=== PATIENT | female | born 2000 | race Caucasian/White ===

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

== ENCOUNTER 2022-03-09 02:25 | Inpatient (IN) | payer MEDICAID, SELFPAY ==
[2022-03-09] VITALS (59 sets, daily range): BP systolic 94–141; BP diastolic 51–77; PULSE 69–127; RESP 14–16; TEMP 36.3–37.2; O2SAT 97–100; BMI 27.3
[2022-03-09] MEDS: Lactated Ringers 1,000 ML 200 ML IV (02:55)
[2022-03-09] MEDS: LACTATED RINGERS 500 ML 999 ML IV ×3 (02:56→09:21)
[2022-03-09 03:19] LABS: Absolute Lymphocyte Count 2.45 X10^3/uL (0.83-4.51); Absolute Neutrophil Count 10.8 X10^3/uL (2.0-7.7); Basophil# 0.07 X10^3/uL; Basophil% 0.5 % (0-1); Eosinophil# 0.13 X10^3/uL; Eosinophils% 0.9 % (0-5); Hematocrit 33.1 % (37-47); Hemoglobin 11.1 g/dL (12.0-15.0); Lymphocyte # 2.45 X10^3/ul (0.83-4.51); Lymphocyte % 16.9 % (19-41); Mean Corp Hgb Conc 33.5 g/dL (32-36); Mean Corpuscular Hgb 27.9 pg (27.0-32.0); Mean Corpuscular Volume 83.2 fL (81-99); Mean Platelet Vol. 11.1 fl (6.2-12.0); Monocyte# 0.91 X10^3/uL; Monocyte% 6.3 % (0-10); NRBC Flagged by Analyzer 0 % (0-5); Neutrophil # 10.75 X10^3/uL (2.7-7.7); Neutrophil % 74.2 % (47-70); Platelet Count 231 K/mm3 (150-450); RBC Distribution Width CV 12.9 % (11.6-14.6); RBC Distribution Width SD 38.9 fl (35.1-43.9); Red Blood Count 3.98 M/mm3 (4.2-5.4); White Blood Count 14.5 K/mm3 (4.4-11.0)
[2022-03-09 04:04] LABS: HIV - WCH Non-Reactive (Nonreactive)
[2022-03-09] MEDS: fentaNYL-bupivacaine (epidural) 100 ML BAG EPIDURAL ×2 (04:06→09:19)
[2022-03-09] MEDS: Ondansetron 4 MG/2 ML Vial IV (08:24)
[2022-03-09] MEDS: Oxytocin 30 units/NS 500 ml 30 UNITS/500 ML IV.SOLN 334 UNITS IV (11:23)
--- NOTE | 2022-03-09 11:30 | PLAC_PTH ---
PATIENT: ANDREW ROBERTS LOC: WP U#:[id number] AGE/SX: 21/F ROOM: WP012 RE03/09/[address]: Dr. Marybeth Srinivasan MD : 2000 BED: 1 DIS: 03/11/2022 SPEC #: [id number] RECD: 03/09/22 14:47 STATUS: FRAN REQ #: [id number] EDY: 03/09/22 11:[address]: Marybeth Srinivasan DEPT: SURGICAL PATHOLOGY RECD BY: Laine Terry ENTERED: 03/12/22 08:15 SP TYPE: PLACENTA OTHR DR: Dr. Fidel Lloyd MD Tissues: Placenta, NOS Procedures: Surgery Specimen Level V HEADER OPERATION: Vaginal delivery PRE-OP DIAGNOSIS: Placental abruption, decelerations TISSUE SUBMITTED: Placenta MICROSCOPIC DIAGNOSIS Spence placenta (461 gm): Umbilical cord ? trivascular with no inflammation. Placental membranes ? acute deciduitis, mild acute chorioamnionitis and mild acute amnionitis. Placental disc ? Tripp-Uriah change, increased intraparenchymal microcalcifications and mild chronic decidual inflammation. AM:buzz 03/13/2022 MICROSCOPIC DESCRIPTION Slides are reviewed. GROSS DESCRIPTION SPECIMEN: PLACENTA / CLINICAL INFORMATION: A. Weight: 3 kg B. Gestational Age: 39 weeks C. Sex: Male PLACENTAL WEIGHT (POST FIXATION): 461 gm PLACENTAL DIMENSIONS: 15 x 15 x 3.5 cm PLACENTAL SHAPE: Usual ovoid PLACENTAL WEIGHT FOR GESTATIONAL AGE: Within 10-99th percentile MEMBRANES - Present A. Insertion: Marginal B. Site of rupture from edge: 9 cm from edge of placental disc C. Color of membrane: Moses, mucoidy D. Abnormalities: None UMBILICAL CORD - Present A. Color: Moses-berry B. Insertion: Paracentral C. Length: 17 cm D. Diameter: 1.2 cm E. Number of vessels: Three F. Abnormalities: None Also present in the container is a detached segment of umbilical cord measuring 22 cm in length and 1 cm in diameter. PLACENTAL DISC - Present A. Color of surface: Moses-berry B. surface abnormalities: None C. Maternal cotyledons: Intact with minimal tears D. Attached retro placental clot: No clot E. Cut surface: Dark red and spongy F. Lesions: Sections reveal a moses, indurated area measuring 0.7 cm in greatest dimension. Plaque is noted on the surface measuring 0.5 cm in greatest dimension. G. Separate clot: Multiple fragments of blood clots are noted weighing 58 gm and measuring in aggregate 9 x 6 x 4 cm. SECTIONS SUBMITTED: 1. Membrane roll 2. Cord, maternal end 3. Detached segment of umbilical cord 4. Placental disc, and maternal surfaces, moses, indurated area and fibrinous plaque on the surface 5. Placental disc, and maternal surfaces 6. Placental disc, and maternal surfaces SJ:buzz 03/12/2022 TC:2 CPT: 69513
--- NOTE | 2022-03-09 11:33 | PCM.HP.OB ---
HPI - General General Date of Admission: 03/09/22 Date of Service: 03/09/22 Chief Complaint: labor HPI Narrative ANDREW ROBERTS, is a 20-year-old 2 para 0-0-1-0 who presented at 39-4/7 gestational weeks complaining of contractions. She arrived to labor and delivery and was evaluated and deemed to be in labor and was admitted. was complicated to date by history of mood disorder, history of nicotine use disorder She has a history of 1 previous first trimester miscarriage and had a D&C for this in 2020. [facility] Medical History (Updated 03/09/22 @ 11:[address] Marybeth Srinivasan MD) Anxiety Depression Tonsil and adenoid disease, chronic Home Medications prenat.vits,michael,[id number] 1 tab PO DAILY 03/09/22 [History Last Taken 03/08/22] Allergy/AdvReac Type Severity Reaction Status Date / Time No Known Allergies Allergy Verified 02/08/21 12:59 Surgical History H/O hernia repair History of placement of ear tubes Social History household members: family Smoking Status: Former smoker alcohol intake: never substance use type: does not use History Elective abortions Hx Para 0 Spontaneous abortions Hx # Term Pregnancies Ectopic pregnancies Hx # Pregnancies Multiple births # of living children ROS Constitutional Constitutional: Denies fatigue, fever(s) or malaise Eyes Eyes: Denies change in vision ENT HEENT: Denies dizziness or headache(s) Cardiovascular Cardiovascular: Denies chest pain, dyspnea or lightheadedness Respiratory/Chest Respiratory/Chest: Denies cough or dyspnea Gastrointestinal Gastrointestinal: Denies change in bowel habits Genitourinary Genitourinary: Denies burning urination or genital lesions Integumentary Integumentary: Denies rash Neurologic Neurologic: Denies confusion, dizziness, headache(s), numbness or weakness Vital Signs Vital Signs Vital Signs: 03/09/22 02:13 03/09/22 02:13 03/09/22 02:13 Temperature Temperature Source Temporal Pulse Rate 98 Blood Pressure 117/77 BP Systolic 117 BP Diastolic 77 Pulse Ox 03/09/22 02:13 03/09/22 03:28 03/09/22 03:28 Temperature 97.4 F L Temperature Source Pulse Rate 127 H Blood Pressure BP Systolic BP Diastolic Pulse Ox 100 03/09/22 03:33 03/09/22 03:33 03/09/22 03:38 Temperature Temperature Source Pulse Rate 96 84 Blood Pressure BP Systolic BP Diastolic Pulse Ox 99 03/09/22 03:38 03/09/22 03:39 03/09/22 03:39 Temperature Temperature Source Pulse Rate 85 Blood Pressure 133/67 H BP Systolic 133 BP Diastolic 67 Pulse Ox 100 03/09/22 03:43 03/09/22 03:43 03/09/22 03:43 Temperature Temperature Source Pulse Rate 83 84 Blood Pressure 125/61 H BP Systolic 125 BP Diastolic 61 Pulse Ox 03/09/22 03:43 03/09/22 03:49 03/09/22 03:49 Temperature Temperature Source Pulse Rate 83 Blood Pressure 120/57 L BP Systolic 120 BP Diastolic 57 Pulse Ox 99 03/09/22 03:51 03/09/22 03:51 03/09/22 03:54 Temperature Temperature Source Pulse Rate 79 Blood Pressure 115/64 BP Systolic 115 BP Diastolic 64 Pulse Ox 99 03/09/22 03:54 03/09/22 03:56 03/09/22 03:56 Temperature Temperature Source Pulse Rate 75 80 Blood Pressure BP Systolic BP Diastolic Pulse Ox 98 03/09/22 03:58 03/09/22 03:58 03/09/22 04:04 Temperature Temperature Source Pulse Rate 69 Blood Pressure 113/60 117/66 BP Systolic 113 117 BP Diastolic 60 66 Pulse Ox 03/09/22 04:04 03/09/22 04:04 03/09/22 04:04 Temperature Temperature Source Pulse Rate 86 88 Blood Pressure BP Systolic BP Diastolic Pulse Ox 99 03/09/22 04:08 03/09/22 04:08 03/09/22 04:09 Temperature Temperature Source Pulse Rate 85 81 Blood Pressure 114/70 BP Systolic 114 BP Diastolic 70 Pulse Ox 03/09/22 04:09 03/09/22 04:13 03/09/22 04:13 Temperature Temperature Source Pulse Rate 82 Blood Pressure 109/59 L BP Systolic 109 BP Diastolic 59 Pulse Ox 98 03/09/22 04:14 03/09/22 04:14 03/09/22 04:19 Temperature Temperature Source Pulse Rate 86 92 Blood Pressure BP Systolic BP Diastolic Pulse Ox 99 03/09/22 04:19 03/09/22 04:24 03/09/22 04:24 Temperature Temperature Source Pulse Rate 89 Blood Pressure BP Systolic BP Diastolic Pulse Ox 99 99 03/09/22 04:29 03/09/22 04:29 03/09/22 04:34 Temperature Temperature Source Pulse Rate 79 81 Blood Pressure BP Systolic BP Diastolic Pulse Ox 98 03/09/22 04:34 03/09/22 04:39 03/09/22 04:39 Temperature Temperature Source Pulse Rate 87 Blood Pressure BP Systolic BP Diastolic Pulse Ox 97 98 03/09/22 04:45 03/09/22 04:45 03/09/22 05:44 Temperature Temperature Source Temporal Pulse Rate 87 Blood Pressure 106/60 BP Systolic 106 BP Diastolic 60 Pulse Ox 03/09/22 05:44 03/09/22 05:44 03/09/22 05:44 Temperature 97.4 F L Temperature Source Pulse Rate 74 Blood Pressure 94/52 L BP Systolic 94 BP Diastolic 52 Pulse Ox 03/09/22 06:42 03/09/22 06:42 03/09/22 06:42 Temperature Temperature Source Temporal Pulse Rate 76 Blood Pressure 104/58 L BP Systolic 104 BP Diastolic 58 Pulse Ox 03/09/22 06:42 03/09/22 07:26 03/09/22 07:26 Temperature 97.8 F Temperature Source Pulse Rate 84 Blood Pressure 120/75 BP Systolic 120 BP Diastolic 75 Pulse Ox 03/09/22 07:27 03/09/22 07:27 03/09/22 07:26 Temperature Temperature Source Temporal Pulse Rate 94 Blood Pressure BP Systolic BP Diastolic Pulse Ox 98 03/09/22 07:26 03/09/22 07:26 03/09/22 07:26 Temperature Temperature Source Pulse Rate 84 Blood Pressure 120/75 BP Systolic 120 BP Diastolic 75 Pulse Ox 99 03/09/22 07:26 03/09/22 08:16 03/09/22 08:16 Temperature 98.1 F Temperature Source Pulse Rate 79 Blood Pressure 131/70 H BP Systolic 131 BP Diastolic 70 Pulse Ox 03/09/22 08:36 03/09/22 08:36 03/09/22 08:37 Temperature Temperature Source Pulse Rate 69 71 Blood Pressure 114/58 L BP Systolic 114 BP Diastolic 58 Pulse Ox 03/09/22 08:37 03/09/22 08:42 03/09/22 08:42 Temperature Temperature Source Pulse Rate 70 Blood Pressure BP Systolic BP Diastolic Pulse Ox 100 100 03/09/22 08:37 03/09/22 08:37 03/09/22 08:37 Temperature Temperature Source Temporal Pulse Rate 73 Blood Pressure 114/58 L BP Systolic 114 BP Diastolic 58 Pulse Ox 03/09/22 08:37 03/09/22 08:37 03/09/22 08:47 Temperature 98.7 F Temperature Source Pulse Rate 75 Blood Pressure BP Systolic BP Diastolic Pulse Ox 100 03/09/22 08:47 03/09/22 08:52 03/09/22 08:52 Temperature Temperature Source Pulse Rate 82 Blood Pressure BP Systolic BP Diastolic Pulse Ox 100 100 03/09/22 09:16 03/09/22 09:16 03/09/22 10:24 Temperature Temperature Source Pulse Rate 83 Blood Pressure 114/70 116/63 BP Systolic 114 116 BP Diastolic 70 63 Pulse Ox 03/09/22 10:24 Temperature Temperature Source Pulse Rate 69 Blood Pressure BP Systolic BP Diastolic Pulse Ox Weight Weight: 70.125 kg Body Mass Index (BMI) 27.3 Physical Exam Const alert and no apparent distress General Appearance: cooperative HEENT normocephalic Resp normal respiratory effort Cardio regular rate GI soft to palpation GI Narrative: gravid, nontender, appropriate for gestational age Extremity no calf tenderness General Extremity: edema Skin no wounds Rashes: No rashes noted Psych activity/motor behavior normal Labs Labs Labs: Blood Type O POSITIVE Antibody Screen NEGATIVE Hct 33.1 % (37-47) L Hgb 11.1 g/dL (12.0-15.0) L HIV 1&2 Antibody Non-Reactive (Nonreactive) Assessment & Plan (1) 39 weeks gestation of : PLAN: Nulliparous patient at 39 weeks gestation presents complaining of labor. She was admitted for labor. Estimated weight is less than 4500 g clinically and pelvis clinically adequate to expect vaginal delivery. May have routine pain control measures as needed and as desired (2) Spontaneous onset of labor:
--- NOTE | 2022-03-09 11:37 | EX.PCM.OBRPT ---
Maternal Data Information Final JOHAN: 03/13/22 Gestational age: 39 4/7 Vaginal Delivery Maternal Presentation Maternal Presentation: Active Labor Operative Information Date of Procedure: 03/09/22 Pre-Operative Diagnosis: Prolonged decelerations, suspected placental abruption Post-Operative Diagnosis: Same Surgery / Procedure Performed: Vacuum Assisted Vaginal Delivery Type of Anesthesia: Epidural Special Medications: none Drain: Irving to straight drain Estimated Blood Loss: 500 Time of Delivery: 11:20 Findings Description of Procedure: I was called to labor and delivery and the patient was complete and pushing. She was labia approximately 3 cm in the skull was on the pelvic floor. Position was ANANT. Patient had had repetitive late and variable decelerations, times with minimal variability. She also had prolonged decelerations. When I arrived the patient pushed and was unable to deliver the head. She had another prolonged deceleration. There is also moderate amount of clots that were starting to extrude from the vagina and this was suspicious for placental abruption. Nursing informed me that this had just recently started within the last few minutes. I discussed with the patient and her support person option of trial of vacuum-assisted vaginal delivery. They desire to proceed. The vacuum was placed on the flexion point and the pressure was created to 550 mmHg. I pulled with 1 pull 1 contraction and 1 pop-off. On the next contraction the head was . The vacuum was not reapplied. A vigorous male was delivered EDUARDO over a second-degree perineal laceration. A loose nuchal cord ?1 was easily reduced. The remainder the was delivered with maternal pushing and gentle traction only in less than 15 seconds. The Pitocin infusion was initiated for active management of the third stage. The cord was clamped and cut in less than 1 minute because cord pulsation had ceased. The infant was attended to by the waiting nursing staff. Cord gases and cord blood were collected. The placenta delivered itself spontaneously with several large clots. 1 pass of the uterine fundus was made to make sure all membranes and placental pieces were removed. The cervix and vagina were intact. The second-degree perineal laceration was repaired with 2-0 Vicryl suture in a running standard fashion. Sponge and needle counts were correct. A vaginal sweep was completed by me. Presentation: EDUARDO Amniotic Membrane Rupture Type: Spontaneous Amniotic Fluid Description: Clear Placental Delivery Description: Spontaneous Placenta Disposition: Sent to Pathology Specimen(s) Removed: Placenta Cord Vessel Description: 3 Vessels Cord Entanglement: Around neck x 1, loose Nuchal Cord Compression: Without compression Cord Gases: ABG and VBG A Gender: Male ([facility]) (1 minute): 8 (5 minute): 9 Delayed Cord Clamping: No Post Vaginal Delivery Medications Given After Delivery: IV Pitocin Episiotomy Description: None Laceration: 2nd degree Complication Complications: None
[2022-03-09] MEDS: 0.9% Saline Lock 10 ML Syringe IV (15:40)
[2022-03-09] MEDS: Acetaminophen 500 MG Tablet 1000 MG PO ×2 (16:04→23:17)
[2022-03-09] MEDS: Ibuprofen 600 MG Tablet PO (18:41)
[2022-03-09] MEDS: Benzocaine/Lanolin/Aloe Vera 1 SPRAY EACH TOPICAL (20:09)
[2022-03-09] MEDS: oxyCODONE 5 MG Tablet PO (20:55)
[2022-03-10] VITALS (11 sets, daily range): BP systolic 93–117; BP diastolic 53–70; PULSE 70–77; RESP 14–16; TEMP 36.3–36.6; O2SAT 97–98
[2022-03-10 04:59] LABS: Hematocrit 25.2 % (37-47); Hemoglobin 8.3 g/dL (12.0-15.0); Mean Corp Hgb Conc 32.9 g/dL (32-36); Mean Corpuscular Volume 85.1 fL (81-99); Mean Platelet Vol. 10.6 fl (6.2-12.0); Platelet Count 197 K/mm3 (150-450); RBC Distribution Width CV 13.1 % (11.6-14.6); RBC Distribution Width SD 40.1 fl (35.1-43.9); Red Blood Count 2.96 M/mm3 (4.2-5.4); White Blood Count 11.8 K/mm3 (4.4-11.0)
[2022-03-10] MEDS: Ibuprofen 600 MG Tablet PO ×2 (07:49→18:39)
--- NOTE | 2022-03-10 09:04 | PCM.PN.OB ---
Subjective Subjective Patient complaining of perineal pain. Tolerating regular diet. Average lochia. Objective Data Objective Data Vital Signs: Vital Signs Temp Pulse Resp BP Pulse Ox O2 Del Method 97.8 F 77 15 109/70 98 Room Air 03/10/22 08:00 03/10/22 08:00 03/10/22 08:00 03/10/22 08:00 03/10/22 08:00 03/10/22 08:00 Oxygen Delivery Method Room Air Weight: 70.125 kg Body Mass Index (BMI) 27.3 Intake & Output: Intake and Output for Last 24 Hours 03/08/22 03/09/22 03/10/22 23:59 23:59 23:59 Intake Total 2243.33 / 2243.33 Output Total 2350 / 2350 400 / 400 Balance -106.67 / -106.67 -400 / -400 Lab / Micro Data Result Diagrams: 03/10/22 04:45 Labs: Laboratory Results - last 24 hr 03/10/22 04:45: WBC 11.8 H, RBC 2.96 L, Hgb 8.3 L, Hct 25.2 L, MCV 85.1, MCH 28.0, MCHC 32.9, RDW Std Deviation 40.1, RDW Coeff of Marcial 13.1, Plt Count 197, MPV 10.6 Micro: Microbiology 03/09/22 02:52 Nasal Secretion SARS-CoV-2 Antigen (Rapid) - Final Physical Exam Narrative Perineum and vulva with some edema but it soft. No evidence of vulvar or vaginal hematoma. Sutures are intact. Const alert and no apparent distress Narrative: Fundus firm, below umbilicus. Assessment & Plan (1) (spontaneous vaginal delivery): PLAN: Plan Outlet vacuum-assisted vaginal delivery. Status post placental abruption. Acute blood loss anemia consistent with blood loss during delivery. Recheck CBC later today. Reassured vulvar pain is common, and there is no evidence of infection or hematoma.
--- NOTE | 2022-03-10 11:01 | CASEMGMT ---
Social Work Assessment Labor and Delivery Unit Date/Time of referral: 03/09/22 12:24pm Referred by: Marybeth Srinivasan Date/Time of intervention: 03/10/22, 10:30am Reason for referral: anxiety/depression/social History obtained from: [facility] Household composition: MOB, MOB's father, and baby Jose L Patient's parent/guardian status: MOB is of the baby Medical History: MOB: history of anxiety, depression, miscarriage Baby: Born 03/09/22, 11:20am, Apgars 8 and 9 at one and five minutes, 3705 g at . Ambulatory Technologist: Dr. Manriquez. 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 MOB's parents help her financially as needed Childcare/Caregivers: MOB's mother will help w/childcare when MOB returns to work Transportation: MOB does not have a car, her mom provides transportation for her Infant supplies: They have all needed supplies including crib, bassinet, car seat, diapers, wipes, bottles, clothing. MOB plans to breast feed. Programs/Agencies Involved: [facility] Children Services/Legal Issues: None Behavioral Health Issues: Mental Health History: MOB confirms history of depression and anxiety. She is not on medication. She has been in the past, states it did not help. MOB has been in counseling in the past, states it was a little helpful. MOB denies any history of substance use. She states was vaping but stopped. No tox screens on MOB completed while pt here. Meconium pending for baby. SW spoke w/MOB about how she has been feeling, she states is feeling fine, denies any symptoms of depression or anxiety at present. SW asked about any thoughts of wanting to harm herself, of suicide, MOB denies. Family/Social Stressors: MOB identifies no stressors. Support Systems: MOB's mother, father, boyfriend Marcin. He is not the father of the baby. They have been together for 7 months. She also identifies her grandma and siblings as supportive. SHe does not know if the father of the baby will be supportive, he has not been involved except in the last month. Depressions and Anxiety/Mental Health Resources/Shaken Baby/Safe Sleeping/Resources/Help Me Grow: SW gave MOB information on all of these topics and reviewed the information. SW reviewed in particular information on depression, reviewed signs of it. SW encouraged MOB to speak w/OB or her regular doctor should she have symptoms. SW also reviewed with MOB the information for the crisis hotline if needed. MOB agreeable to Help Me Grow referral. Referral made. Assessment: SW spoke w/MOB initially. MOB has flat affect, though when speaking w/her she does become more interactive. MOB answers questions appropriately but short in answers. SW inquired about situation as boyfriend is not the father of the baby. As per RN, father of the baby did come to visit with his girlfriend. SW inquired about this, MOB states we kicked him out. SW inquired if he will be involved, MOB states she does not know. SW asked if this is causing any concern or worry for her, she states no. SW did ask pt's mother and boyfriend to come back in room after speaking w/MOB initially alone. SW did review signs and symptoms of with them as well, so that they are aware. As per MOB, her mother notices when she is feeling down. MOB also tells this SW she will be staying w/MOB for a while to help w/the care of the baby. MOB does have a flat affect, she does have support in caring for the baby. Plan: Baby home w/MOB at discharge, with support of MOB's parents. SW made Help Me Grow referral. Meconium pending. Otherwise, no further concerns or social service needs at this time. BANDAR Rivera
[2022-03-10 14:15] LABS: Hematocrit 26.7 % (37-47); Hemoglobin 8.7 g/dL (12.0-15.0); Mean Corp Hgb Conc 32.6 g/dL (32-36); Mean Corpuscular Hgb 27.8 pg (27.0-32.0); Mean Corpuscular Volume 85.3 fL (81-99); Mean Platelet Vol. 10.2 fl (6.2-12.0); Platelet Count 215 K/mm3 (150-450); RBC Distribution Width CV 13.1 % (11.6-14.6); RBC Distribution Width SD 39.7 fl (35.1-43.9); Red Blood Count 3.13 M/mm3 (4.2-5.4); White Blood Count 11.3 K/mm3 (4.4-11.0)
[2022-03-10] MEDS: Acetaminophen 500 MG Tablet 1000 MG PO ×2 (15:08→21:07)
[2022-03-11 02:22] VITALS: BP 101/56; PULSE 62
[2022-03-11 02:31] VITALS: BP 101/56; PULSE 62; RESP 16; TEMP 36.7
[2022-03-11] MEDS: Ibuprofen 600 MG Tablet PO (08:18)
[2022-03-11 08:22] VITALS: BP 129/61; PULSE 53
[2022-03-11 08:25] VITALS: BP 129/61; PULSE 57; RESP 15; TEMP 36.6; O2SAT 99
--- NOTE | 2022-03-11 09:41 | PN.OBGYN_ITS ---
Subjective Subjective Pain average controlled. Average lochia. Urinating without difficulty. No bowel movement yet but tolerating regular diet and passing flatus Objective Data Objective Data Vital Signs: Vital Signs Temp Pulse Resp BP Pulse Ox O2 Del Method 97.9 F 57 L 15 129/61 H 99 Room Air 03/11/22 08:25 03/11/22 08:25 03/11/22 08:25 03/11/22 08:25 03/11/22 08:25 03/11/22 08:25 Oxygen Delivery Method Room Air Weight: 70.125 kg Body Mass Index (BMI) 27.3 Intake & Output: Intake and Output for Last 24 Hours 03/09/22 03/10/22 03/11/22 23:59 23:59 23:59 Intake Total 2243.33 / 2243.33 Output Total 2350 / 2350 400 / 400 Balance -106.67 / -106.67 -400 / -400 Lab / Micro Data Result Diagrams: 03/10/22 14:06 Labs: Laboratory Results - last 24 hr 03/10/22 14:06: WBC 11.3 H, RBC 3.13 L, Hgb 8.7 L, Hct 26.7 L, MCV 85.3, MCH 27.8, MCHC 32.6, RDW Std Deviation 39.7, RDW Coeff of Marcial 13.1, Plt Count 215, MPV 10.2 Micro: Microbiology 03/09/22 02:52 Nasal Secretion SARS-CoV-2 Antigen (Rapid) - Final Physical Exam Const alert and no apparent distress Narrative: Fundus firm, below umbilicus. Assessment & Plan (1) (spontaneous vaginal delivery): PLAN: day #2 status post outlet vacuum-assisted vaginal delivery. Patient and are doing well. is breast-feeding. Desires dis charge home today.
--- NOTE | 2022-03-11 09:41 | PCM.DC.SUM ---
Providers Date of Admission: 03/09/22 Primary Care Physician: Dr. Fidel Lloyd MD Reason For Visit: VAG DELIVERY Diagnosis Discharge Diagnosis (1) (spontaneous vaginal delivery): Status: Acute Code(s): O80 - Encounter for full-term uncomplicated delivery Plan: day #2 status post outlet vacuum-assisted vaginal delivery. Patient and are doing well. is breast-feeding. Desires discharge home today. Medications at Discharge Home Medications prenat.vits,michael,vtd-nlbw-rbitp 1 tab PO DAILY 03/09/22 Hospital Course Summary of Care Provided Hospital Course: Patient was admitted on 03/09/2022 in early labor. Her labor progressed normally. She had a partial abruption with some prolonged decelerations. She had outlet vacuum-assisted vaginal delivery. There was 1 pull at 550 mmHg with 1 pop-off then the vacuum was left off and the patient was able to complete the delivery with maternal pushing efforts. the patient did well. She had a second-degree laceration and repair. She was discharged home on day #2 with routine prescriptions and instructions. Weight / BMI Weight Weight: 70.125 kg Body Mass Index (BMI) 27.3 ABG / Lab / Microbiology Data Result Diagrams: 03/10/22 14:06 Laboratory: Laboratory Results - last 24 hr 03/10/22 14:06: WBC 11.3 H, RBC 3.13 L, Hgb 8.7 L, Hct 26.7 L, MCV 85.3, MCH 27.8, MCHC 32.6, RDW Std Deviation 39.7, RDW Coeff of Marcial 13.1, Plt Count 215, MPV 10.2 Microbiology: Microbiology 03/09/22 02:52 Nasal Secretion SARS-CoV-2 Antigen (Rapid) - Final D/C Instructions May resume sexual activity in: 6 weeks Please Follow Up With: Marybeth Srinivasan MD When: Follow up with our office in 1-2 and 6 weeks or as needed. [phone] Meaningful Use Info Meaningful Use Diagnoses (Choose all that apply): None applicable Discharge Plan Admission Admit Date/Time: 03/09/22 02:25 Primary Reason for Your Visit: Vaginal delivery Attending Provider: Marybeth Srinivasan Primary Care Provider: Fidel Lloyd Discharge Orders/Prescriptions Prescriptions: No Action #2 Tablet 1 tab PO DAILY Referrals / Follow Up: Fidel Lloyd MD [Primary Care Provider] - Disposition Disposition (needs filled in before D/C Order can be placed): Home, Self Care
[2022-03-11] MEDS: Acetaminophen 500 MG Tablet 1000 MG PO (10:19)
[2022-03-13 14:40] LABS: Pathology Specimen OB SEE PATHOLOGY REPORT
== END 2022-03-11 11:00 | disposition home or self-care (01) | DRG 560 ==
LOC: WPOUT 02:28 → WP 02:28
PROVIDERS: Obstetrics & Gynecology; Admitting Provider Obstetrics & Gynecology; PCP Pediatrics; Visit Provider Obstetrics & Gynecology
DX: O69.81X0 Labor and delivery complicated by cord around neck, without compression, not applicable or unspecified (principal); Z37.0 Single live birth; O45.93 Premature separation of placenta, unspecified, third trimester; D62 Acute posthemorrhagic anemia; O99.03 Anemia complicating the puerperium; O70.1 Second degree perineal laceration during delivery; Z20.822 Contact with and (suspected) exposure to COVID-19; O76 Abnormality in fetal heart rate and rhythm complicating labor and delivery; Z87.891 Personal history of nicotine dependence; Z3A.39 39 weeks gestation of pregnancy
CPT/HCPCS: 59025; 59050; 85025; 85027; 86703; 86850; 86900; 86901; 87426; 88307; 99218; J7120; A4216; G0378; J2405; J3490

== ENCOUNTER 2022-10-04 11:35 | Emergency (ER) | payer MEDICAID, SELFPAY ==
[2022-10-04 11:36] VITALS: BP 108/72; PULSE 94; RESP 16; TEMP 36.6; O2SAT 100
--- NOTE | 2022-10-04 12:14 | US_ITS ---
STUDY: FIRST TRIMESTER OBSTETRICAL ULTRASOUND REASON FOR EXAM: Female, 22 years old vaginal bleeding LMP: August 01, 2022. TECHNIQUE: Transvaginal TECHNICAL QUALITY: Adequate. PRIOR ULTRASOUND: None. FINDINGS: There is visualization of a single gestational sac in a normal intrauterine position. The mean sac diameter (MSD) measures 1.74 cm, indicating an estimated gestational age (EGA) of 6 weeks, 4 days. The gestational sac shape is within normal limits. There is a visualized yolk sac. The yolk sac measures 1.3 mm. The placenta is non-visualized. There is no demonstrated embryo ( pole). The estimated gestation age (EGA) by LMP is 9 weeks, 1 days. The estimated date of delivery (JOHAN) by LMP is May 08, 2023. The estimated gestation age (EGA) by US is 6 weeks, 4 days. The estimated date of delivery (JOHAN) by US is May 26, 2023. The uterus measures 8 cm x 7.3 cm x 5.9 cm. There is no demonstrated uterine fibroid. The cervix is closed. The right ovary measures 2 cm x 1.4 cm x 1.9 cm. A dominant follicle is seen measuring 2 cm x 1.4 cm x 1.9 cm. There is no visualized right adnexal mass or complex lesion. The left ovary measures 4.6 cm x 3.2 cm x 2.5 cm. There is a 2.8 cm x 2.5 cm x 2.3 cm left corpus luteum cyst. There is no visualized left adnexal mass or complex lesion. There is no fluid in the cul de sac. US/Transvaginal w/Preg US IMPRESSION: Intrauterine gestational sac with a gestational age of 6 weeks and 4 days. No pole is seen. Follow-up is recommended. Electronically Signed: Cody Molina MD at 14:32 EDT ,
--- NOTE | 2022-10-04 12:25 | ED.VIS.FEGU ---
HPI <CODI Montes - Last Filed: 10/04/22 15:43> HPI - Female History of Present Illness Chief Complaint: Vag Bld, Preg Narrative Narrative: Patient is a 22-year-old female who is a 3 para 1, spontaneous 1. Patient states that last evening into this morning she has had spotting as well as some left lower quadrant pain. She is currently 7 weeks , she has followed up with [facility] Dr. Vazquez. Patient states that she is concerned for baby, she states the pain is worse her left lower quadrant is intermittent. No urinary symptoms. Patient denies any fever or chills. Denies any nausea or vomiting. PFSH <CODI Montes - Last Filed: 10/04/22 15:43> PFS Medical History (Updated 10/04/22 @ 15:31 by CODI Montes) Anxiety Depression Incomplete (spontaneous vaginal delivery) Tonsil and adenoid disease, chronic Home Medications prenat.vits,michael,[id number] 1 tab PO DAILY 03/09/22 [History Last Taken 03/08/22] ibuprofen 600 mg tablet 600 mg PO Q6H PRN Pain 20 days #60 TABLETS 03/11/22 [Rx Last Taken Unknown] cephalexin 500 mg capsule 500 mg PO Q12 #14 CAPSULES 10/04/22 [Rx Last Taken Unknown] Allergy/AdvReac Type Severity Reaction Status Date / Time No Known Allergies Allergy Verified 10/04/22 11:38 Surgical History H/O hernia repair History of placement of ear tubes Social History household members: family Smoking Status: Former smoker alcohol intake: never substance use type: does not use ROS <CODI Montes - Last Filed: 10/04/22 15:43> ROS ED ROS Narrative Constitutional: Negative for fever, chills, weight loss, weakness Eyes: Negative for vision loss, vision change, double vision ENT: Negative for any sore throat, ear pain, congestion Cardiovascular: Negative for any chest pain, tightness, palpitations Respiratory: Negative for any cough, sputum production, hemoptysis, dyspnea, dyspnea on exertion, orthopnea Gastrointestinal: Negative for any nausea, vomiting, diarrhea, constipation, blood in stool, blood in vomit. Positive left lower abdominal pain : Negative for any urinary frequency, dysuria, retention, blood in urine. Positive for vaginal spotting Muscle skeletal: Negative for any muscle joint pain, stiffness, myalgias, arthralgias, neck pain, back pain Neurological: Negative for any headache, syncope, numbness or tingling, dizziness Skin: Negative for any rashes, lumps, itching, abrasions, lacerations Psychiatric: Negative for any depression, anxiety, stress, suicidal ideation, homicidal ideation Hematologic: Negative for any easy bruising, excessive bruising, easy bleeding Allergies: Negative for any eczema, hives, rash EXAM <CODI Montes - Last Filed: 10/04/22 15:43> Physical Exam Narrative Exam Narrative: Vital signs reviewed. Patient appears generally well, patient appears nontoxic, vital signs are stable. HEET: Head normocephalic atraumatic, TMs clear bilaterally. Posterior pharynx is clear, moist mucous membranes. Nares clear bilaterally. Neck: Supple with no lymphadenopathy or tenderness. No signs of meningismus, negative jolt sign. Cardiac: Regular rate and rhythm no murmurs gallops or rubs, equal peripheral pulses bilaterally. Respiratory: Lungs clear to auscultation bilaterally. No chest tenderness. Abdomen: Soft, nontender, nondistended. No abdominal bruit or pulsatile masses. No hepatosplenomegaly, active bowel sounds in all quadrants. Extremities: No peripheral edema, no signs of gross trauma or deformity. Active full range of motion of all extremities. Neuro: Cranial nerves II through XII intact, no focal neurological deficits. Skin: Clean dry and intact with no rash, purpura, petechiae, vesicles or pustules. Backs/flank: No CVA tenderness, no midline spinal tenderness, no deformity. Psych: Normal mood and affect. No SI, HI or acute psychosis. Const Vital Signs: 10/04/22 11:36 10/04/22 15:41 10/04/22 15:42 Temperature 97.8 F Temperature Source Temporal Pulse Rate 94 60 Respiratory Rate 16 15 Blood Pressure 108/72 105/62 Blood Pressure Mean 84 76 Pulse Ox 100 99 Oxygen Delivery Method Room Air Positive well nourished and well developed General Appearance ED: well developed <Dr. Steven Glasgow DO - Last Filed: 10/04/22 15:49> Physical Exam Const Vital Signs: 10/04/22 11:36 10/04/22 15:41 10/04/22 15:42 Temperature 97.8 F Temperature Source Temporal Pulse Rate 94 60 Respiratory Rate 16 15 Blood Pressure 108/72 105/62 Blood Pressure Mean 84 76 Pulse Ox 100 99 Oxygen Delivery Method Room Air MDM <CODI Montes - Last Filed: 10/04/22 15:43> MDM Lab Data Labs: Laboratory Results - last 24 hr 10/04/22 10/04/22 10/04/22 12:35 12:35 12:35 WBC 8.1 RBC 4.55 Hgb 12.2 Hct 36.6 L MCV 80.4 L MCH 26.8 L MCHC 33.3 RDW Std Deviation 40.9 RDW Coeff of Marcial 14.0 Plt Count 254 MPV 10.3 Immature Gran % (Auto) 0.500 Neut % (Auto) 69.5 Lymph % (Auto) 20.7 [place] % (Auto) 6.6 Eos % (Auto) 2.0 Baso % (Auto) 0.7 Absolute Neuts (auto) 5.6 Absolute Lymphs (auto) 1.67 Nucleated RBC % 0 Sodium Potassium Chloride Carbon Dioxide Anion Gap BUN Creatinine Estim Creat Clear Calc Est GFR (MDRD) Af Amer Est GFR (MDRD) Non-Af BUN/Creatinine Ratio Glucose Calcium HCG, Quant 33475 H Urine Color Urine Clarity Urine pH Ur Specific [place] U Specif Grav (Refrac) Urine Protein Urine Glucose (UA) Urine Ketones Urine Occult Blood Urine Nitrite Urine Bilirubin Urine Urobilinogen Ur Leukocyte Esterase Urine RBC Urine WBC Ur Squamous Epith Cells Ur Transition Epith Cell Ur Renal Epithelial Cell Calcium Oxalate Crystal Uric Acid Crystals Triple Phos Crystals Other Crystals Amorphous Sediment Urine Bacteria Hyaline Casts Fine Granular Casts Coarse Granular Casts Waxy Casts RBC Casts WBC Casts Urine Mucus Urine Trichomonas Urine Yeast Blood Type O POSITIVE 10/04/22 10/04/22 10/04/22 12:35 12:44 12:44 WBC RBC Hgb Hct MCV MCH MCHC RDW Std Deviation RDW Coeff of Marcial Plt Count MPV Immature Gran % (Auto) Neut % (Auto) Lymph % (Auto) [place] % (Auto) Eos % (Auto) Baso % (Auto) Absolute Neuts (auto) Absolute Lymphs (auto) Nucleated RBC % Sodium 138 Potassium 3.7 Chloride 109 H Carbon Dioxide 23.0 Anion Gap 6 BUN 9 Creatinine 0.66 Estim Creat Clear Calc 112.47 Est GFR (MDRD) Af Amer 147 Est GFR (MDRD) Non-Af 121 BUN/Creatinine Ratio 13.7 Glucose 80 Calcium 9.3 HCG, Quant Urine Color Cancelled YELLOW Urine Clarity Cancelled Sl. Cloudy Urine pH Cancelled 7.0 Ur Specific [place] Cancelled 1.015 U Specif Grav (Refrac) Cancelled Urine Protein Cancelled 30 H Urine Glucose (UA) Cancelled NEGATIVE Urine Ketones Cancelled Negative Urine Occult Blood Cancelled 150 H Urine Nitrite Cancelled Negative Urine Bilirubin Cancelled Negative Urine Urobilinogen Cancelled Normal Ur Leukocyte Esterase Cancelled 500 H Urine RBC Cancelled 0 SEEN Urine WBC Cancelled 10-25 SEEN Ur Squamous Epith Cells Cancelled 0-5 SEEN Ur Transition Epith Cell Cancelled Ur Renal Epithelial Cell Cancelled 0-5 SEEN Calcium Oxalate Crystal Cancelled Uric Acid Crystals Cancelled Triple Phos Crystals Cancelled Other Crystals Cancelled Amorphous Sediment Cancelled Urine Bacteria Cancelled 0 SEEN Hyaline Casts Cancelled Fine Granular Casts Cancelled Coarse Granular Casts Cancelled Waxy Casts Cancelled RBC Casts Cancelled WBC Casts Cancelled Urine Mucus Cancelled 0 SEEN Urine Trichomonas Cancelled Urine Yeast Cancelled Blood Type Radiography Diagnostic Testing: Clinical Impression(s) from Imaging Studies Obstetrics Ultrasound 10/04/22 12:14 IMPRESSION: Intrauterine gestational sac with a gestational age of 6 weeks and 4 days. No pole is seen. Follow-up is recommended. Electronically Signed: Cody Molina MD at 14:32 EDT , Differential Diagnosis Differential Diagnosis: Ectopic Why less likely: Negative ultrasound Treatment and Re-Evaluation Narrative: Patient appears well, patient appears nontoxic, vital signs are stable. Patient presents to the emergency department with complaints of vaginal spotting, left lower quad abdominal pain concerning for miscarriage. Patient is O+, patient does not require RhoGAM at this time. Patient's laboratory values were consistent with , patient CBC was unremarkable no evidence of any acute anemia. Patient's hCG quantitative was 19,460 consistent with . Patient had no vaginal bleeding here. Urinalysis did show some bacteremia with a positive leukocyte Estrace. Secondary to her being , she will be treated with Keflex twice a day for 5 days given her first dose here. Patient's ultrasound shows intrauterine gestational sac with gestational age of 6 weeks and 4 days. No pole is seen. At this time, patient be considered threatened miscarriage, she and her mother were educated, given strict return precautions to return for any worsening bleeding, passing of tissue. She will follow-up closely with her [facility] that she is established with. She will also take the antibiotics. Patient and mother both are in agreement, all questions were answered. <Dr. Steven Glasgow, DO - Last Filed: 10/04/22 15:49> [facility] Lab Data Labs: Laboratory Results - last 24 hr 10/04/22 10/04/22 10/04/22 12:35 12:35 12:35 WBC 8.1 RBC 4.55 Hgb 12.2 Hct 36.6 L MCV 80.4 L MCH 26.8 L MCHC 33.3 RDW Std Deviation 40.9 RDW Coeff of Marcial 14.0 Plt Count 254 MPV 10.3 Immature Gran % (Auto) 0.500 Neut % (Auto) 69.5 Lymph % (Auto) 20.7 [place] % (Auto) 6.6 Eos % (Auto) 2.0 Baso % (Auto) 0.7 Absolute Neuts (auto) 5.6 Absolute Lymphs (auto) 1.67 Nucleated RBC % 0 Sodium Potassium Chloride Carbon Dioxide Anion Gap BUN Creatinine Estim Creat Clear Calc Est GFR (MDRD) Af Amer Est GFR (MDRD) Non-Af BUN/Creatinine Ratio Glucose Calcium HCG, Quant 65901 H Urine Color Urine Clarity Urine pH Ur Specific [place] U Specif Grav (Refrac) Urine Protein Urine Glucose (UA) Urine Ketones Urine Occult Blood Urine Nitrite Urine Bilirubin Urine Urobilinogen Ur Leukocyte Esterase Urine RBC Urine WBC Ur Squamous Epith Cells Ur Transition Epith Cell Ur Renal Epithelial Cell Calcium Oxalate Crystal Uric Acid Crystals Triple Phos Crystals Other Crystals Amorphous Sediment Urine Bacteria Hyaline Casts Fine Granular Casts Coarse Granular Casts Waxy Casts RBC Casts WBC Casts Urine Mucus Urine Trichomonas Urine Yeast Blood Type O POSITIVE 10/04/22 10/04/22 10/04/22 12:35 12:44 12:44 WBC RBC Hgb Hct MCV MCH MCHC RDW Std Deviation RDW Coeff of Marcial Plt Count MPV Immature Gran % (Auto) Neut % (Auto) Lymph % (Auto) [place] % (Auto) Eos % (Auto) Baso % (Auto) Absolute Neuts (auto) Absolute Lymphs (auto) Nucleated RBC % Sodium 138 Potassium 3.7 Chloride 109 H Carbon Dioxide 23.0 Anion Gap 6 BUN 9 Creatinine 0.66 Estim Creat Clear Calc 112.47 Est GFR (MDRD) Af Amer 147 Est GFR (MDRD) Non-Af 121 BUN/Creatinine Ratio 13.7 Glucose 80 Calcium 9.3 HCG, Quant Urine Color Cancelled YELLOW Urine Clarity Cancelled Sl. Cloudy Urine pH Cancelled 7.0 Ur Specific [place] Cancelled 1.015 U Specif Grav (Refrac) Cancelled Urine Protein Cancelled 30 H Urine Glucose (UA) Cancelled NEGATIVE Urine Ketones Cancelled Negative Urine Occult Blood Cancelled 150 H Urine Nitrite Cancelled Negative Urine Bilirubin Cancelled Negative Urine Urobilinogen Cancelled Normal Ur Leukocyte Esterase Cancelled 500 H Urine RBC Cancelled 0 SEEN Urine WBC Cancelled 10-25 SEEN Ur Squamous Epith Cells Cancelled 0-5 SEEN Ur Transition Epith Cell Cancelled Ur Renal Epithelial Cell Cancelled 0-5 SEEN Calcium Oxalate Crystal Cancelled Uric Acid Crystals Cancelled Triple Phos Crystals Cancelled Other Crystals Cancelled Amorphous Sediment Cancelled Urine Bacteria Cancelled 0 SEEN Hyaline Casts Cancelled Fine Granular Casts Cancelled Coarse Granular Casts Cancelled Waxy Casts Cancelled RBC Casts Cancelled WBC Casts Cancelled Urine Mucus Cancelled 0 SEEN Urine Trichomonas Cancelled Urine Yeast Cancelled Blood Type Radiography Diagnostic Testing: Clinical Impression(s) from Imaging Studies Obstetrics Ultrasound 10/04/22 12:14 IMPRESSION: Intrauterine gestational sac with a gestational age of 6 weeks and 4 days. No pole is seen. Follow-up is recommended. Electronically Signed: Cody Molina MD at 14:32 EDT , Treatment and Re-Evaluation Narrative: Patient appears well, patient appears nontoxic, vital signs are stable. Patient presents to the emergency department with complaints of vaginal spotting, left lower quad abdominal pain concerning for miscarriage. Patient is O+, patient does not require RhoGAM at this time. Patient's laboratory values were consistent with , patient CBC was unremarkable no evidence of any acute anemia. Patient's hCG quantitative was 19,460 consistent with . Patient had no vaginal bleeding here. Urinalysis did show some bacteremia with a positive leukocyte Estrace. Secondary to her being , she will be treated with Keflex twice a day for 5 days given her first dose here. Patient's ultrasound shows intrauterine gestational sac with gestational age of 6 weeks and 4 days. No pole is seen. At this time, patient be considered threatened miscarriage, she and her mother were educated, given strict return precautions to return for any worsening bleeding, passing of tissue. She will follow-up closely with her [facility] that she is established with. She will also take the antibiotics. Patient and mother both are in agreement, all questions were answered. Attending note: I personally saw and evaluated the patient with the midlevel provider. I reviewed the patient's prior health records, medications, allergies, I reviewed today's labs, images if obtained (if obtained). I work closely with the midlevel provider to come up with adequate treatment and management plan. Exam: Patient was hemodynamically stable, afebrile, nontoxic-appearing peer abdominal exam is benign axis with acute surgical pathology. exam deferred by patient. MDM/plan Concern for early of ectopic versus miscarriage versus threatened versus intrauterine given early and lower abdominal pain. we obtained a broad lab and imaging work-up to further elucidate the etiology patient complaints. Ultrasound showed no evidence of heartbeat however did show intrauterine and gestational sac. Patient's beta-hCG was appropriate for her stage of . She was O+ and despite vaginal bleeding did not require RhoGAM. Her urine showed evidence of inflammation which was concerning for asymptomatic bacteriuria so she was treated prophylactically with Keflex. There is no obvious life or limb threatening etiology that could be identified based on her work-up. Her diagnosis is threatened miscarriage. Patient was given outpatient OB follow-up instructions, vitamin instructions, avoiding NSAID instructions, and healthy diet instructions. She is appropriate discharge home with close OB follow-up. She was given an opportunity ask questions. She agreed with the plan and agreed to follow-up or return if symptoms change or worsened Discharge Plan Triage Chief Complaint: Vag Bld, Preg ED Midlevel Provider: Godwin Cervantes ED Provider: Steven Glasgow Dx/Rx/DC Orders Clinical Impression: Threatened miscarriage, Bacteria in urine Instructions: ED Possible Miscarriage ... Prescriptions: New cephalexin 500 mg capsule 500 mg PO Q12 Qty: 14 0RF No Action prenat.vits,michael,[id number] Tablet 1 tab PO DAILY ibuprofen [ibuprofen] 600 MG tablet 600 mg PO Q6H PRN (Reason: Pain) 20 Days Qty: 60 1RF Primary Care Provider: Fidel Lloyd Referrals: Fidel Lloyd MD [Primary Care Provider] - Activity Restrictions/Additional Instructions: Please take antibiotics until finished. Please follow-up closely with your [facility]. Return for any other symptoms. Disposition Disposition: Home, Self Care Discharge Date/Time: 10/04/22 15:42
[2022-10-04 12:41] VITALS: BMI 20.6
[2022-10-04 12:47] LABS: Absolute Lymphocyte Count 1.67 X10^3/uL (0.83-4.51); Absolute Neutrophil Count 5.6 X10^3/uL (2.0-7.7); Basophil# 0.06 X10^3/uL; Basophil% 0.7 % (0-1); Eosinophil# 0.16 X10^3/uL; Hematocrit 36.6 % (37-47); Hemoglobin 12.2 g/dL (12.0-15.0); Lymphocyte # 1.67 X10^3/ul (0.83-4.51); Lymphocyte % 20.7 % (19-41); Mean Corp Hgb Conc 33.3 g/dL (32-36); Mean Corpuscular Hgb 26.8 pg (27.0-32.0); Mean Corpuscular Volume 80.4 fL (81-99); Mean Platelet Vol. 10.3 fl (6.2-12.0); Monocyte# 0.53 X10^3/uL; Monocyte% 6.6 % (0-10); NRBC Flagged by Analyzer 0 % (0-5); Neutrophil # 5.59 X10^3/uL (2.7-7.7); Neutrophil % 69.5 % (47-70); Platelet Count 254 K/mm3 (150-450); RBC Distribution Width SD 40.9 fl (35.1-43.9); Red Blood Count 4.55 M/mm3 (4.2-5.4); White Blood Count 8.1 K/mm3 (4.4-11.0)
[2022-10-04 13:08] LABS: Anion Gap 6 (5-15); BUN 9 mg/dL (7-18); BUN/Creat Ratio 13.7 RATIO (10-20); Calcium,Total 9.3 mg/dL (8.5-10.1); Chloride 109 mmol/L (98-107); Creatinine, Serum 0.66 mg/dL (0.55-1.02); EST Glomerular Filtration Rate 121 mL/min (>60); Est Glom Filt Rate - Afr Amer 147 mL/min (>60); Estimated Creatinine Clearance 112.47 ml/min; Glucose 80 mg/dL (74-106); Potassium 3.7 mmol/L (3.5-5.1); Sodium Level 138 mmol/L (136-145)
[2022-10-04 13:21] LABS: hCG Titer Quant., Serum 19460 mIU/mL (1-3)
[2022-10-04 13:31] LABS: Bacteria 0 SEEN /hpf (None Seen); Color, Urine YELLOW (Yellow); Glucose, Dipstick NEGATIVE (Normal); Mucous, Urine 0 SEEN /hpf (<or=2+); Red Blood Cells-Urine 0 SEEN /hpf (0-5); Urine Bilirubin Dipstick Negative (Negative); Urine Clarity Sl. Cloudy (Clear)
[2022-10-04 13:32] LABS: Ketone-Dipstick Negative (Negative); Leukocyte Esterase-Dipstick 500 /ul (Negative); Nitrite-Dipstick Negative (Negative); Occult Blood-Urine 150 /ul (Negative); Protein-Dipstick 30 mg/dl (Negative); Specific Gravity, Urine 1.015 (1.002-1.030); Urine Urobilinogen Normal (Normal)
[2022-10-04 13:40] LABS: Renal Epithelial Cells 0-5 SEEN /hpf (0-5); Squamous Epithelial Cells - UA 0-5 SEEN /hpf (5-10); White Blood Cells 10-25 SEEN /hpf (0-5)
[2022-10-04] MEDS: Cephalexin 250 MG Capsule 500 MG PO (15:40)
[2022-10-04 15:41] VITALS: PULSE 60; RESP 15; O2SAT 99
[2022-10-04 15:42] VITALS: BP 105/62
== END 2022-10-04 15:42 | disposition home or self-care (01) ==
PROVIDERS: Nurse Practitioner; Emergency Provider Emergency Medicine; PCP Pediatrics; Visit Provider Emergency Medicine
DX: O20.0 Threatened abortion (principal); Z3A.01 Less than 8 weeks gestation of pregnancy; O26.891 Other specified pregnancy related conditions, first trimester; R82.71 Bacteriuria; Z87.891 Personal history of nicotine dependence
CPT/HCPCS: 84702; 81001; 80048; 86901; 76817; 85025; 86900; 93976; A4216

== ENCOUNTER 2022-10-04 20:46 | Emergency (ER) | payer MEDICAID, SELFPAY ==
[2022-10-04 20:48] VITALS: BP 105/66; PULSE 71; RESP 18; TEMP 36.7; O2SAT 100; BMI 20.9
--- NOTE | 2022-10-04 21:28 | ED.VIS.FEGU ---
HPI HPI - Female History of Present Illness Chief Complaint: Vag Bld, Preg Pain Pain: Positive for Pelvic Pain Onset: Today Context: Sudden Onset Timing: Intermittent Quality: Positive for Cramping Location: RLQ, LLQ and Suprapubic Associated Symptoms Associated Symptoms: Negative for Dysuria, Frequency or Urgency Test: Positive P: 1 Ab: 1 Narrative Narrative: Patient presents with abdominal pain and cramping that became worse again today. Patient was seen here earlier today and diagnosed with a threatened spontaneous miscarriage. Patient states she had an ultrasound earlier today which did not show any cardiac activity. Quantitative hCG at that time was 19,460. Patient was also diagnosed with bacteriuria and it was given a prescription for Keflex. Patient states that her cramping became worse when she got home. Patient denies any further vaginal bleeding or discharge. PFSH PFSH Medical History Anxiety Depression Incomplete (spontaneous vaginal delivery) Tonsil and adenoid disease, chronic Home Medications prenat.vits,michael,uus-nxsc-uhros 1 tab PO DAILY 03/09/22 [History Last Taken 03/08/22] ibuprofen 600 mg tablet 600 mg PO Q6H PRN Pain 20 days #60 TABLETS 03/11/22 [Rx Last Taken Unknown] cephalexin 500 mg capsule 500 mg PO Q12 #14 CAPSULES 10/04/22 [Rx Last Taken Unknown] hydrocodone-acetaminophen 5-325mg 5mg-325mg 1 tab PO Q6H PRN PRN Pain 3 days #10 TABLETS 10/04/22 [Rx Last Taken Unknown] Allergy/AdvReac Type Severity Reaction Status Date / Time No Known Allergies Allergy Verified 10/04/22 20:50 Surgical History H/O hernia repair History of placement of ear tubes Social History household members: family Smoking Status: Former smoker alcohol intake: never substance use type: does not use ROS ROS ED Constitutional Constitutional ED: Denies chills or fever(s) Eyes Eyes: Denies blurry vision or change in vision ENT ENT ED: Denies rhinorrhea or sore throat Cardiovascular Cardiovascular: Denies chest pain or palpitations Respiratory/Chest Respiratory/Chest: Denies cough or dyspnea Gastrointestinal Gastrointestinal: Reports abdominal pain; Denies nausea or vomiting Genitourinary Genitourinary ED: Denies dysuria or hematuria Musculoskeletal Musculoskeletal: Denies back pain or neck pain Integumentary Denies abscess or rash Neurologic Neurologic: Denies headache(s) or weakness Allergic/Immunologic Allergic/Immunologic ED: Denies mouth swelling or urticaria EXAM Physical Exam Const Vital Signs: 10/04/22 20:48 Temperature 98.0 F Temperature Source Temporal Pulse Rate 71 Respiratory Rate 18 Blood Pressure 105/66 Blood Pressure Mean 79 Pulse Ox 100 Oxygen Delivery Method Room Air Positive well nourished and well developed General Appearance ED: well developed HEENT Reports moist mucous membranes Neck supple and no JVD Resp normal respiratory effort and clear to auscultation bilaterally Cardio regular rate, regular rhythm and no murmurs GI normal to inspection, nondistended, normoactive bowel sounds Palpation: soft and tender LLQ, RLQ and suprapubic; Negative for guarding Extremity normal to inspection General Extremety ED: Negative for edema or tenderness General Extremity: Negative for edema Neuro oriented x3, CN's II-XII intact bilaterally and no sensory deficits noted Sensorium / Orientation: alert Motor Exam: strength 5/5 throughout Psych mental status grossly normal Skin no rashes or lesions noted MDM MDM MDM Narrative Medical decision making narrative: Differential diagnosis includes threatened miscarriage and urinary tract infection. Patient had a complete work-up earlier today. I do not feel any further testing is necessary at this time. Patient was given a dose of morphine and Zofran here. Patient was given a prescription for a short course of [place]. Patient was instructed to follow-up with her primary care physician and APPLICATION SUPPORT ADMINISTRATOR in 2 to 3 days. Patient understood and was agreeable with the plan. All questions were answered. Discharge Plan Triage Chief Complaint: Vag Bld, Preg ED Provider: Omar Quiroga Dx/Rx/DC Orders Clinical Impression: Threatened miscarriage, Bacteria in urine Instructions: ED Possible Miscarriage ... Prescriptions: New hydrocodone-acetaminophen [hydrocodone-acetaminophen] 5-325 mg tablet 1 tab PO Q6H PRN PRN (Reason: Pain) 3 Days Qty: 10 0RF No Action prenat.vits,michael,kez-jjnq-nuciq Tablet 1 tab PO DAILY ibuprofen [ibuprofen] 600 MG tablet 600 mg PO Q6H PRN (Reason: Pain) 20 Days Qty: 60 1RF cephalexin 500 mg capsule 500 mg PO Q12 Qty: 14 0RF Primary Care Provider: Fidel Lloyd Referrals: Fidel Lloyd MD [Primary Care Provider] - 2 Days Activity Restrictions/Additional Instructions: Follow-up with your APPLICATION SUPPORT ADMINISTRATOR in 2 days. Disposition Disposition: Home, Self Care
[2022-10-04] MEDS: Morphine 4 MG/ML Syringe IM (21:31)
[2022-10-04] MEDS: Ondansetron ODT 4 MG Tablet PO (21:31)
== END 2022-10-04 22:12 | disposition home or self-care (01) ==
PROVIDERS: Emergency Provider Emergency Medicine; PCP Pediatrics; Visit Provider Emergency Medicine
DX: O20.0 Threatened abortion (principal); R10.2 Pelvic and perineal pain; R82.71 Bacteriuria; Z87.891 Personal history of nicotine dependence; O26.891 Other specified pregnancy related conditions, first trimester; Z3A.01 Less than 8 weeks gestation of pregnancy
CPT/HCPCS: 76817; 80048; 81001; 84702; 85025; 86900; 86901; 93976; 96372; 99283; 99284; A4216

== ENCOUNTER 2022-10-09 00:22 | Emergency (ER) | payer MEDICAID, SELFPAY ==
[2022-10-09 00:23] VITALS: BP 117/73; PULSE 100; RESP 18; TEMP 36.1; O2SAT 97; BMI 21.0
[2022-10-09 01:19] LABS: Absolute Lymphocyte Count 2.15 X10^3/uL (0.83-4.51); Basophil# 0.07 X10^3/uL; Basophil% 0.6 % (0-1); Eosinophil# 0.15 X10^3/uL; Eosinophils% 1.2 % (0-5); Hematocrit 35.8 % (37-47); Hemoglobin 11.9 g/dL (12.0-15.0); Lymphocyte # 2.15 X10^3/ul (0.83-4.51); Lymphocyte % 17.7 % (19-41); Mean Corp Hgb Conc 33.2 g/dL (32-36); Mean Corpuscular Hgb 26.5 pg (27.0-32.0); Mean Corpuscular Volume 79.7 fL (81-99); Mean Platelet Vol. 10.5 fl (6.2-12.0); Monocyte# 0.74 X10^3/uL; Monocyte% 6.1 % (0-10); NRBC Flagged by Analyzer 0 % (0-5); Neutrophil # 8.99 X10^3/uL (2.7-7.7); Neutrophil % 74.2 % (47-70); Platelet Count 267 K/mm3 (150-450); RBC Distribution Width CV 13.7 % (11.6-14.6); RBC Distribution Width SD 39.4 fl (35.1-43.9); Red Blood Count 4.49 M/mm3 (4.2-5.4); White Blood Count 12.1 K/mm3 (4.4-11.0)
[2022-10-09] MEDS: 0.9% Normal Saline 1,000 ML 999 ML IV (01:48)
[2022-10-09] MEDS: Morphine 2 MG/ML Syringe IV (01:53)
[2022-10-09] MEDS: Ondansetron 4 MG/2 ML Vial IV (01:53)
[2022-10-09 01:55] LABS: hCG Titer Quant., Serum 9212 mIU/mL (1-3)
[2022-10-09 04:01] VITALS: BP 102/62; BP 95/70; BP 98/58; PULSE 80; PULSE 87; PULSE 99
[2022-10-09] MEDS: Ketorolac 30 MG/ML Syringe IV (04:05)
--- NOTE | 2022-10-09 04:29 | EDS_ITS ---
HPI HPI - Female History of Present Illness Chief Complaint: Vag Bld, Preg Narrative Narrative: Patient is a 22-year-old female who has past medical history of previous miscarriage which led to need for emergent D&C secondary to hemorrhage and anemia. She was seen roughly 5 days ago secondary to abdominal discomfort and had an ultrasound at that time which showed a single intrauterine gestation but there was no embryo noted or heartbeat. Patient states that she has had slight spotting for the last few days but that this evening began with passage of large clots and increased bleeding. She states she is concerned that she may need an emergent D&C again and therefore comes in for evaluation. She denies any history of bleeding disorder or blood thinner use. [facility] Medical History Anxiety Depression Incomplete (spontaneous vaginal delivery) Tonsil and adenoid disease, chronic Home Medications prenat.vits,michael,nsw-uege-sylfv 1 tab PO DAILY 03/09/22 [History Last Taken 03/08/22] ibuprofen 600 mg tablet 600 mg PO Q6H PRN Pain 20 days #60 TABLETS 03/11/22 [Rx Last Taken Unknown] cephalexin 500 mg capsule 500 mg PO Q12 #14 CAPSULES 10/04/22 [Rx Last Taken Unknown] hydrocodone-acetaminophen 5-325mg 5mg-325mg 1 tab PO Q6H PRN PRN Pain 3 days #10 TABLETS 10/04/22 [Rx Last Taken Unknown] oxycodone-acetaminophen 5 mg-325 mg tablet (Percocet) 1 tab PO Q6H PRN pain 3 days #12 tabs 10/09/22 [Rx Last Taken Unknown] Allergy/AdvReac Type Severity Reaction Status Date / Time No Known Allergies Allergy Verified 10/04/22 20:50 Surgical History H/O hernia repair History of placement of ear tubes Social History household members: family Smoking Status: Former smoker alcohol intake: never substance use type: does not use ROS ROS ED Constitutional Constitutional ED: Denies chills or fever(s) ENT ENT ED: Denies sore throat Cardiovascular Cardiovascular: Denies chest pain Respiratory/Chest Respiratory/Chest: Denies cough or dyspnea Gastrointestinal Gastrointestinal: Reports abdominal pain; Denies diarrhea, nausea or vomiting Genitourinary Genitourinary ED: Reports other Details: Positive vaginal bleeding ; Denies dysuria Musculoskeletal Musculoskeletal: Denies myalgias Integumentary Denies rash Neurologic Neurologic: Denies headache(s) Hematologic/Lymphatic Hematologic/Lymphatic: Denies easy bleeding or easy bruising EXAM Physical Exam Const Vital Signs: 10/09/22 00:23 10/09/22 04:01 Temperature 97 F L Temperature Source Temporal Pulse Rate 100 Pulse Rate [Lying] 99 Pulse Rate [Sitting (for 1 minute prior to obtaining)] 80 Pulse Rate [Standing (for 1 minute prior to obtaining)] 87 Respiratory Rate 18 Blood Pressure 117/73 Blood Pressure [Lying] 98/58 L Blood Pressure [Sitting (for 1 minute prior to obtaining)] 102/62 Blood Pressure [Standing (for 1 minute prior to obtaining)] 95/70 Blood Pressure Mean 87 Blood Pressure Mean [Lying] 71 Blood Pressure Mean [Sitting (for 1 minute prior to obtaining)] 75 Blood Pressure Mean [Standing (for 1 minute prior to obtaining)] 78 Pulse Ox 97 Oxygen Delivery Method Room Air Positive well nourished and well developed General Appearance ED: well developed HEENT Reports moist mucous membranes Eyes PERRL and EOMs intact bilaterally Eyes Narrative: No subconjunctival pallor noted Neck supple Resp normal respiratory effort and clear to auscultation bilaterally Cardio regular rate and regular rhythm GI normal to inspection, nondistended, normoactive bowel sounds, non-tender and non-distended GI Narrative: No voluntary guarding or rigidity no pulsatile mass or fluid wave Auscultation: normoactive bowel sounds Palpation: soft Narrative: External genitalia is normal. Speculum exam shows a moderate amount of dark blood in the vaginal os with large clot formation. This was removed with suction and following removal of the blood and clots there is just a trace amount of persistent bleeding within the vault. No vaginal tears or lacerations noted Extremity normal to inspection Neuro oriented x3 and CN's II-XII intact bilaterally Sensorium / Orientation: alert Psych Psych Narrative: Patient has a flat affect Skin no rashes or lesions noted MDM MDM MDM Narrative Medical decision making narrative: Patient scented to the ER with stable vitals and a soft nonsurgical abdomen. Her history coupled with the recent ultrasound which showed an IUP but no embryo or heartbeat is concerning/consistent with a active miscarriage. As there is a known intrauterine from the previous ultrasound just 5 days ago I do not feel there is need for repeat imaging studies. With concern patient has been bleeding to where she will need an emergent D&C secondary to severe anemia I did elect to perform basic laboratory studies. Patient's hemoglobin is 11.9 and value from 5 days prior is 12.2 indicating no significant change. Her quantitative hCG value however trended from approximately 19,000 down to 9000 consistent with active miscarriage. The patient was given 1 L of fluid and following completion of the work-up orthostatic vital signs were obtained. Orthostatic vital signs were. Patient did not have copious amounts of bleeding following the suctioning of blood and clots from the speculum exam. As she reports she had to only change 1 pad since the procedure and even that only a small amount of blood. I discussed the case with the patient's switchman. She agrees as vitals are stable and she is not showing changes for acute infection or severe blood loss anemia that this can be followed up on an outpatient basis. The patient was able to stand and ambulate in the ER. Therefore this time as vitals have remained stable there is no need for an acute transfusion and she has no signs of overt infection or retained products of conception she can follow-up on an outpatient basis. We discussed reasons to return to the ER both patient and family state they understand and are agreeable to this and therefore patient be discharged at this time History & Record Review Discussion w/independent historian: Patient and Family Additional record(s) reviewed:: Prior inpatient record Lab Data Attestation: I reviewed the patient's lab results. Labs: Laboratory Results - last 24 hr 10/09/22 10/09/22 01:14 01:14 WBC 12.1 H RBC 4.49 Hgb 11.9 L Hct 35.8 L MCV 79.7 L MCH 26.5 L MCHC 33.2 RDW Std Deviation 39.4 RDW Coeff of Marcial 13.7 Plt Count 267 MPV 10.5 Immature Gran % (Auto) 0.200 Neut % (Auto) 74.2 H Lymph % (Auto) 17.7 L [place] % (Auto) 6.1 Eos % (Auto) 1.2 Baso % (Auto) 0.6 Absolute Neuts (auto) 9.0 H Absolute Lymphs (auto) 2.15 Nucleated RBC % 0 HCG, Quant 9212 H Discharge Plan Triage Chief Complaint: Vag Bld, Preg ED Provider: Guy Cast Dx/Rx/DC Orders Clinical Impression: Spontaneous miscarriage Instructions: ED Miscarriage Spontaneous Prescriptions: New oxycodone-acetaminophen [Percocet] 5-325 mg tablet 1 tab PO Q6H PRN (Reason: pain) 3 Days Qty: 12 0RF No Action prenat.vits,michael,ars-gxlv-ncxqh Tablet 1 tab PO DAILY ibuprofen [ibuprofen] 600 MG tablet 600 mg PO Q6H PRN (Reason: Pain) 20 Days Qty: 60 1RF cephalexin 500 mg capsule 500 mg PO Q12 Qty: 14 0RF hydrocodone-acetaminophen [hydrocodone-acetaminophen] 5-325 mg tablet 1 tab PO Q6H PRN PRN (Reason: Pain) 3 Days Qty: 10 0RF Primary Care Provider: NOT,DEFINED Referrals: Sabrina Vazquez CNM [Med Staff - Adv Practice Prof] - NOT,DEFINED [Primary Care Provider] - Activity Restrictions/Additional Instructions: Keep yourself well-hydrated and follow-up with your WIDE AREA NETWORK ADMINISTRATOR in the next 1 to 2 days for repeat evaluation. If pads have minimal saturation and you are changing them every few hours this is okay. However if you going through multiple pads an hour and they are completely saturated indicating you have worsening bleeding or you have any further concerns please return to the ER for repeat evaluation Disposition Disposition: Home, Self Care Discharge Date/Time: 10/09/22 05:05
[2022-10-09] MEDS: oxyCODONE 5 MG Tablet PO (04:40)
== END 2022-10-09 05:05 | disposition home or self-care (01) ==
PROVIDERS: Emergency Provider Emergency Medicine; Visit Provider Emergency Medicine
DX: O03.9 Complete or unspecified spontaneous abortion without complication (principal); Z87.891 Personal history of nicotine dependence
CPT/HCPCS: 84702; 85025; J2405; J7030; A4216

== ENCOUNTER 2022-10-09 15:20 | Day surgery (SDC) | payer MEDICAID, SELFPAY ==
[2022-10-09] MEDS: Lactated Ringers 1,000 ML 999 ML IV (15:10)
--- NOTE | 2022-10-09 15:55 | HP.PCM_ITS ---
HPI - General General Date of Service: 10/09/22 Chief Complaint: Incomplete HPI Narrative ANDREW ROBERTS, is a 22 F who presented to office with vaginal bleeding & feeling dizzy. She had been in the ED overnight for a miscarriage. [facility] Medical History Anxiety Depression Incomplete (spontaneous vaginal delivery) Tonsil and adenoid disease, chronic Home Medications prenat.vits,michael,mno-hovs-gdzdo 1 tab PO DAILY 03/09/22 [History Last Taken 03/08/22] ibuprofen 600 mg tablet 600 mg PO Q6H PRN Pain 20 days #60 TABLETS 03/11/22 [Rx Last Taken 10/09/22 12:00] cephalexin 500 mg capsule 500 mg PO Q12 #14 CAPSULES 10/04/22 [Rx Last Taken 10/09/22 13:00] oxycodone-acetaminophen 5 mg-325 mg tablet (Percocet) 1 tab PO Q6H PRN pain 3 days #12 tabs 10/09/22 [Rx Last Taken 10/09/22 09:00] Allergy/AdvReac Type Severity Reaction Status Date / Time No Known Allergies Allergy Verified 10/09/22 15:40 Surgical History H/O hernia repair History of placement of ear tubes Social History household members: family Smoking Status: Former smoker alcohol intake: never substance use type: does not use Physical Exam Const alert and oriented x3 Constitutional Narrative: appears weak Resp normal respiratory effort GI soft to palpation, non-tender and non-distended Neuro CN's II-XII intact bilaterally Assessment & Plan Assessment/Plan (1) Incomplete : PLAN: Plan TVUS in office show's retained POC's. As patient hypotensive will send STAT lab s and proceed with emergent D&C. Informed consent signed & patient agrees with plan.
[2022-10-09 15:59] VITALS: BP 106/64; PULSE 95; RESP 18; TEMP 37; O2SAT 98; BMI 20.5
--- NOTE | 2022-10-09 16:01 | PCM.DC ---
Discharge Instructions Diet Discharge Diet: No restrictions Activity Discharge Activity: May Shower May resume sexual activity in: 2 weeks Weight Bearing Status: Weight bearing as tolerated Dressing / Incision Call your doctor if you observe: Fever of 101 or Higher, Coldness, Increased Pain, Change in Color, Inability to urinate, Using more than 1 pad per hour, Shortness of breath, Dizziness, Fainting spells, Chest pain, Increased palpitations (irregular heartbeat), Calf discomfort and Uncontrolled pain Follow Up Care Please Follow Up With: Caorl Ponce When: 2 weeks Test Results: Test results from this visit will be discussed in further detail at your follow-up appointment, if applicable. Discharge Plan Admission Primary Reason for Your Visit: Miscarriage Attending Provider: Carol Ponce Primary Care Provider: Care PhysicianRadha Primary Discharge Orders/Prescriptions Prescriptions: Continued prenat.vits,michael,fcq-mlem-hcjhn Tablet 1 tab PO DAILY ibuprofen 600 MG tablet 600 mg PO Q6H PRN (Reason: Pain) 20 Days Qty: 60 1RF cephalexin 500 mg capsule 500 mg PO Q12 Qty: 14 0RF oxycodone-acetaminophen [Percocet] 5-325 mg tablet 1 tab PO Q6H PRN (Reason: pain) 3 Days Qty: 12 0RF Referrals / Follow Up: Care PhysicianRadha Primary [Primary Care Provider] - Disposition Disposition (needs filled in before D/C Order can be placed): Home, Self Care
[2022-10-09 16:11] LABS: Hematocrit 28.8 % (37-47); Hemoglobin 9.5 g/dL (12.0-15.0); Mean Corpuscular Hgb 27.1 pg (27.0-32.0); Mean Corpuscular Volume 82.3 fL (81-99); Mean Platelet Vol. 10.8 fl (6.2-12.0); Platelet Count 252 K/mm3 (150-450); RBC Distribution Width CV 14.3 % (11.6-14.6); RBC Distribution Width SD 42.5 fl (35.1-43.9); White Blood Count 10.1 K/mm3 (4.4-11.0)
--- NOTE | 2022-10-09 16:14 | OP.PCM_ITS ---
Report of Operation Date of Procedure: 10/09/22 Pre-Operative Diagnosis: Incomplete Post-Operative Diagnosis: Same Surgery/Procedure Performed:: Suction dilation and curettage Description of Surgical Findings:: Products of conception and uterus consistent with 5-6 week size Surgeon: Carol Ponce social science instructor: None Type of Anesthesia: General/Regional and MAC Specimen's removed: Products of conception Drains: straight cath for 100ml prior to procedure Estimated Blood Loss (mL): 100ml Fluids Replaced: 1 L Description of Procedure: Patient taken to OR where MAC anesthesia was placed & found to be adequate. She was placed in the dorsal lithotomy position, prepped & draped in the normal sterile fashion. Cervix was grasped with a tenaculum. Cervix was gently dilated. Suction curette (#7 ) was gently introduced for good return of POC's. This process was repeated. Gentle sharp curettage (#4 ) was performed for additional return of POCs. Repeat suction curettage & then gentle sharp curettage was repeated 2 additional times. At end of procedure all instruments removed from the vaginal cavity and a vaginal sweep was performed. Patient tolerated the procedure well. Procedure Start Time: 16:22 Procedure Stop Time: 16:39 Complications None Admit VTE Documentation VTE Present on Admission: No VTE Pharm Prophylaxis ordered?: No
--- NOTE | 2022-10-09 16:15 | POC_PTH ---
PATIENT: ANDREW ROBERTS LOC: [facility] [place] U#:[id number] AGE/SX: 22/F ROOM: RE10/09/[address]: Dr. Carol Ponce MD : 2000 BED: DIS: 10/09/2022 SPEC #: [id number] RECD: 10/10/22 09:48 STATUS: FRAN JORDANKathie #: [id number] EDY: 10/09/22 16:[address]: Carol Ponce DEPT: SURGICAL PATHOLOGY RECD BY: Melissa Sharpe ENTERED: 10/10/22 11:36 SP TYPE: PROD CONC OTHR DR: No Primary Care Phys Tissues: Product of conception, NOS Procedures: Surgery Specimen Level IV HEADER OPERATION: Suction dilation and curettage PRE-OP DIAGNOSIS: Incomplete TISSUE SUBMITTED: Products of conception MICROSCOPIC DIAGNOSIS Products of conception, suction dilation and curettage: Decidua and immature chorionic villi (products of conception), clinically incomplete . SJ:buzz 10/11/2022 MICROSCOPIC DESCRIPTION Slides are reviewed. GROSS DESCRIPTION Received in fixative is one container labeled with the patient's name and designated products of conception. The specimen consists of multiple irregular fragments of light to dark moses tissue that in aggregate measure 9.0 x 8.0 x 1.0 cm. parts are not grossly recognized. Director Orange portions are submitted in one cassette. / AM:buzz 10/10/2022 TC:5 CPT: 37253
[2022-10-09 16:56] LABS: International Normalized Ratio 1.2; Prothrombin Time (Protime)PT. 14.8 SECONDS (11.7-14.9)
[2022-10-09 16:57] LABS: Partial Thromboplast Time 35.2 Seconds (24.1-36.2)
[2022-10-09 16:58] VITALS: BP 106/64; BP 123/65; PULSE 116; RESP 16; TEMP 36.6; O2SAT 100
[2022-10-09 16:58] LABS: Fibrinogen 320 mg/dl (203-444)
[2022-10-09 17:00] VITALS: BP 106/64; BP 114/57; PULSE 118; RESP 16; O2SAT 100
[2022-10-09 17:02] LABS: ALB/GLOB Ratio 1.2 RATIO (0.9-2.4); AST(SGOT) 14 U/L (15-37); Alanine Aminotransfer ALT/SGPT 18 U/L (13-56); Albumin, Serum 3.6 g/dL (3.2-5.0); Alkaline Phosphatase 56 U/L (45-117); Anion Gap 7 (5-15); BUN 12 mg/dL (7-18); BUN/Creat Ratio 19.5 RATIO (10-20); Calcium,Total 8.6 mg/dL (8.5-10.1); Chloride 109 mmol/L (98-107); Creatinine, Serum 0.61 mg/dL (0.55-1.02); EST Glomerular Filtration Rate 131 mL/min (>60); Est Glom Filt Rate - Afr Amer 159 mL/min (>60); Estimated Creatinine Clearance 121.69 ml/min; Globulin 2.9 g/dL (2.2-4.2); Glucose 87 mg/dL (74-106); Potassium 3.7 mmol/L (3.5-5.1); Protein, Total 6.5 g/dL (6.4-8.2); Sodium Level 139 mmol/L (136-145)
[2022-10-09] MEDS: Lactated Ringers 1,000 ML 100 ML IV (17:13)
[2022-10-09 17:15] VITALS: BP 106/64; BP 109/55; PULSE 83; RESP 16; O2SAT 100
[2022-10-09 17:30] VITALS: BP 106/64; BP 110/55; PULSE 79; RESP 16; TEMP 36.2; O2SAT 100
[2022-10-09 17:56] VITALS: BP 102/57; BP 106/64; PULSE 73; RESP 14; TEMP 36.4; O2SAT 100
[2022-10-09] MEDS: Doxycycline 100 MG CAPSULE 200 MG PO (18:29)
== END 2022-10-09 18:45 | disposition home or self-care (01) ==
LOC: SDC 15:23 → AC 15:24
PROVIDERS: Referring Provider Obstetrics & Gynecology; Visit Provider Obstetrics & Gynecology
PROC: (CPT 59812; principal; 2022-10-09 16:00)
DX: O03.4 Incomplete spontaneous abortion without complication (principal); O99.411 Diseases of the circulatory system complicating pregnancy, first trimester; I95.9 Hypotension, unspecified; O99.341 Other mental disorders complicating pregnancy, first trimester; F32.A Depression, unspecified; F41.9 Anxiety disorder, unspecified; O99.331 Smoking (tobacco) complicating pregnancy, first trimester; F17.290 Nicotine dependence, other tobacco product, uncomplicated; Z3A.01 Less than 8 weeks gestation of pregnancy
CPT/HCPCS: 59812; 01965; 80053; 84702; 85025; 85027; 85384; 85610; 85730; 86850; 86900; 86901; 88305; 96361; 96374; 96375; 99284; J7030; J7120; A4216; J2405

== ENCOUNTER 2024-03-15 07:25 | Inpatient (IN) | payer MEDICAID, SELFPAY ==
[2024-03-15] VITALS (16 sets, daily range): BP systolic 90–117; BP diastolic 61–85; PULSE 70–133; RESP 10–19; TEMP 35.8–36.6; O2SAT 97–100; BMI 25.4
[2024-03-15] MEDS: Lactated Ringers 1,000 ML 999 ML IV (07:27)
[2024-03-15] MEDS: Methylergonovine 0.2 MG/ML Ampul IM (07:40)
[2024-03-15 07:54] LABS: Absolute Neutrophil Count 7.6 X10^3/uL (2.0-7.7); Basophil# 0.06 X10^3/uL; Basophil% 0.5 % (0-1); Eosinophil# 0.21 X10^3/uL; Eosinophils% 1.6 % (0-5); Hemoglobin 11.8 g/dL (12.0-15.0); Lymphocyte % 31.2 % (19-41); Mean Corp Hgb Conc 34.7 g/dL (32-36); Mean Corpuscular Hgb 30.5 pg (27.0-32.0); Mean Corpuscular Volume 87.9 fL (81-99); Monocyte% 8.4 % (0-10); NRBC Flagged by Analyzer 0 % (0-5); Neutrophil # 7.55 X10^3/uL (2.7-7.7); Neutrophil % 57.4 % (47-70); POSITIVE MORPHOLOGY YES; Platelet Count 262 K/mm3 (150-450); RBC Distribution Width CV 13.7 % (11.6-14.6); RBC Distribution Width SD 43.6 fl (35.1-43.9); Red Blood Count 3.87 M/mm3 (4.2-5.4); White Blood Count 13.1 K/mm3 (4.4-11.0)
[2024-03-15] MEDS: Cefazolin 2 GM in 0.9% Normal Saline (100mL Bag) 100 ML IV (08:00)
[2024-03-15 08:01] LABS: Differential Indicated SCAN CRITERIA MET
--- NOTE | 2024-03-15 08:15 | HP.PCM.OB_ITS ---
HPI - General General Date of Admission: 03/15/24 Date of Service: 03/15/24 Chief Complaint: Vaginal bleeding HPI Narrative ANDREW ROBERTS, is a 23 F who presents via squad with vaginal bleeding. Maternal Data Information JOHAN Calculator Estimated Delivery Date Method Current WG Current Estimate 04/09/24 Manual 36w 3d PFSH [facility] Medical History Depression Anxiety Tonsil and adenoid disease, chronic Home Medications ?Medication ?Instructions ?Recorded ?Last Taken ?Type prenat.vits,michael,wrj-qjmv-dtfmk 1 tab PO DAILY 03/09/22 03/08/22 History ibuprofen 600 mg tablet 600 mg PO Q6H PRN Pain 20 days #60 03/11/22 10/09/22 12:00 Rx TABLETS cephalexin 500 mg capsule 500 mg PO Q12 #14 CAPSULES 10/04/22 10/09/22 13:00 Rx oxycodone-acetaminophen 5 mg-325 1 tab PO Q6H PRN pain 3 days #12 10/09/22 10/09/22 09:00 Rx mg tablet (Percocet) tabs Allergy/AdvReac Type Severity Reaction Status Date / Time No Known Allergies Allergy Verified 10/09/22 15:40 Surgical History History of placement of ear tubes H/O hernia repair Social History household members: family Smoking Status: Former smoker alcohol intake: never substance use type: does not use History Elective abortions Hx Para 0 Spontaneous abortions Hx # Term Pregnancies Ectopic pregnancies Hx # Pregnancies Multiple births # of living children Labs Labs Labs: Blood Type O POSITIVE Antibody Screen NEGATIVE Hct 34.0 % (37-47) L Hgb 11.8 g/dL (12.0-15.0) L Obstetrics Ultrasound Syphilis Total Ab Pending HIV 1&2 Antibody Non-Reactive (Nonreactive) Rhogam given: No see [facility] H&P Assessment & Plan (1) Placental abruption: QUALIFIERS: Trimester: third trimester Qualified Code(s): O45.93 - Premature separation of placenta, unspecified, third trimester COMMENT: 23yo @ 36&3 PLAN: Plan Patient presented by squad and was hypotensive with vaginal bleeding. RAISSA was called. In the OR FHT's were bradycardic and thus proceeded with a STAT section under GETA. Please see operative note.
--- NOTE | 2024-03-15 08:24 | OP.PCM_ITS ---
Maternal Data Information JOHAN Calculator Estimated Delivery Date Method Current WG Current Estimate 04/09/24 Manual 36w 3d Details Operative Information Pre-Operative Diagnosis: (1) Placental abruption (2) distress Post-Operative Diagnosis: Same Indications for : Distress Indications Narrative: The patient was taken to the operating room where she was prepped and draped in the dorsal supine position. GETA was placed and found to be adequate. A Pfannenstiel skin incision was made approximately 2 cm above the symphysis pubis and carried through to the uterus. The uterine incision was made in a low transverse fashion with the scalpel and extended superiorly and inferiorly with blunt dissection. The 's head was brought to the incision in the flexed position and delivered without difficulty. The head was gently guided to allow delivery of the anterior and p osterior shoulders. The body then delivered with fundal pressure in the standard fashion. The 3VC cord was clamped and cut. The infant was handed off to the waiting rn medicare. The placenta was delivered with fundal massage and gentle traction in the standard fashion. The uterus was exteriorized and cleared of clots and debris. The uterine incision was closed with #1 Vicryl suture in a running locked fashion. Monocryl suture was used in an imbricating fashion. The incision was examined and was found to be hemostatic. The uterus was returned to the abdominal cavity. After irrigating Danny was placed over the uterine incision as some areas were denuded (but hemostatic). The rectus muscle was examined and any bleeding was Bovie cauterized. The fascia was closed with PDS suture in a running standard fashion. The subcutaneous tissue was examining and any bleeding was Bovie cauterized. The subcutaneous tissue was reapproximated with interrupted sutures. The skin was closed in a subcuticular fashion by the LIFT TRUCK OPERATOR while I was present in the labor & delivery unit. The remainder of the procedure was performed by me with assistance. All sponge, lap, and needle counts were correct. The patient was taken to her room for recovery in a stable condition. Mell Interiano CNM assisted with the surgery from the beginning until fascial closure started. At that time the LIFT TRUCK OPERATOR arrived and was able to assist. Classification: Stat Procedure Type: low transverse certified recreational therapist #1: Mell Interiano certified recreational therapist #2: Felicia Ryan Type of Anesthesia: General Antibiotic Given: Ancef 2 grams IV x1 and Zithromax 500 mg/5 mL X1 Drain: Irving to straight drain Estimated Blood Loss: 800ml Fluids Replaced: 450ml Procedure Start Time: 07:36 Procedure Stop Time: 08:14 Findings Description of Procedure: Normal maternal uterus and adnexa. Placenta c/w findings of abruption. Presentation: Positive for Vertex Amniotic Membrane Rupture Type: Artificial Amniotic Fluid Description: Bloody Placental Delivery Description: Spontaneous Placenta Disposition: [facility] Cord Vessel Description: 3 Vessels Cord Entanglement: None Cord Gases: ABG and VBG A Gender: Male (weight = 6-7) (1 minute): 6 (5 minute): 9 Delayed Cord Clamping: No Complications Complications: none
[2024-03-15] MEDS: Azithromycin 500 MG in Dextrose 5%-Water (250mL Bag) 250 ML 250 MG IV (08:30)
[2024-03-15 08:31] LABS: Reactive Lymphocyte 1+
[2024-03-15] MEDS: Oxytocin 15 Units/NS 250ml 15 UNITS/250 ML IV.SOLN 83 UNITS IV (08:45)
[2024-03-15 08:48] LABS: Syphilis Antibodies Non-reactive
[2024-03-15] MEDS: HYDROmorphone 1 MG/ML Syringe IV ×4 (09:20→20:00)
[2024-03-15] MEDS: Ketorolac 30 MG/ML Syringe IV ×3 (09:21→21:50)
[2024-03-15] MEDS: 0.9% Saline Lock 10 ML Syringe IV ×3 (09:27→21:50)
[2024-03-15] MEDS: Acetaminophen 500 MG Tablet 1000 MG PO ×2 (10:44→17:03)
--- NOTE | 2024-03-15 11:44 | NURSING ---
While providing andrzej care and initial fundal assessment in OR #1 after completion of surgery, fundus initially +1 above umbilicus and right of midline. After gentle fundal massage, approximately 400mL of dark red blood and 2 golf ball size clots expelled and fundus midline and 4 below umbilicus and firm. Estela Ponce called to patient bedside for evaluation and states to continue with routine section recovery.
[2024-03-15 12:17] LABS: Hematocrit 30.6 % (37-47); Hemoglobin 10.7 g/dL (12.0-15.0); Mean Corpuscular Hgb 30.9 pg (27.0-32.0); Mean Corpuscular Volume 88.4 fL (81-99); Mean Platelet Vol. 10.3 fl (6.2-12.0); Platelet Count 163 K/mm3 (150-450); RBC Distribution Width CV 13.5 % (11.6-14.6); RBC Distribution Width SD 43.3 fl (35.1-43.9); Red Blood Count 3.46 M/mm3 (4.2-5.4); White Blood Count 16.6 K/mm3 (4.4-11.0)
[2024-03-15] MEDS: Lactated Ringers 1,000 ML 100 ML IV (13:06)
[2024-03-16] VITALS: BP 105/71; PULSE 78; RESP 18; TEMP 36.1; O2SAT 98
[2024-03-16] MEDS: 0.9% Saline Lock 10 ML Syringe IV ×4 (00:08→18:09)
[2024-03-16] MEDS: HYDROmorphone 1 MG/ML Syringe IV ×2 (00:08→04:52)
--- NOTE | 2024-03-16 02:17 | NURSING ---
Report given to Keira BENNETT, taking over pt care.
[2024-03-16] MEDS: Ketorolac 30 MG/ML Syringe IV (03:35)
[2024-03-16 03:39] VITALS: BP 97/60; PULSE 68; RESP 16; TEMP 36.3; O2SAT 98
--- NOTE | 2024-03-16 04:50 | NURSING ---
Pt received scheduled toradol at 0335 and rated her pain a 0/10. When pt got up around 0350 to the bathroom, pt requesting dilaudid. Pt stated that she typically takes PRN dilaudid before going to bathroom. This RN encouraged mother to try to get out of bed and go to bathroom and to let scheduled toradol time to work. This RN assisted mother to bathroom and asked pt if she was having any pain-pt said she was not having pain at the time. Educated mother on importance of stopping dilaudid and taking oxyir PRN for pain. Pt is taking adequate oral fluids as well. Pt and pts mother upset due to they were told that pt could take PRN dilaudid for the first 24hrs. Pt called this RN around 0445 stating that pain was a 7/10 and needing dilaudid. This RN educated mother again on dilaudid vs. oxyir. Pt adamant that she should take dilaudid at this time.
[2024-03-16 05:17] LABS: Hematocrit 25.4 % (37-47); Hemoglobin 8.8 g/dL (12.0-15.0); Mean Corp Hgb Conc 34.6 g/dL (32-36); Mean Corpuscular Hgb 31.1 pg (27.0-32.0); Mean Corpuscular Volume 89.8 fL (81-99); Mean Platelet Vol. 10.1 fl (6.2-12.0); Platelet Count 161 K/mm3 (150-450); RBC Distribution Width CV 13.7 % (11.6-14.6); Red Blood Count 2.83 M/mm3 (4.2-5.4); White Blood Count 10.5 K/mm3 (4.4-11.0)
[2024-03-16] MEDS: Acetaminophen 500 MG Tablet 1000 MG PO ×4 (06:25→18:08)
[2024-03-16 08:00] VITALS: BP 99/60; PULSE 65; RESP 16; TEMP 36; O2SAT 99
[2024-03-16] MEDS: oxyCODONE 5 MG Tablet PO ×4 (08:27→21:39)
[2024-03-16] MEDS: Ibuprofen 600 MG Tablet PO ×3 (09:44→21:38)
[2024-03-16] MEDS: Senna/Docusate Sodium 1 Tablet PO (09:44)
--- NOTE | 2024-03-16 12:24 | PCM.PN.OB ---
Subjective Subjective Patient is doing well. Having discomfort but pain is controlled with oral pain medication. She is tolerating a diet without nausea or vomiting. She denies lightheadedness or dizziness when she is up ambulating, but experiences abdominal soreness. No chest pain, shortness of breath, leg pain. Lochia is normal. She is voiding without difficulty. She offers no complaints at this time. She is currently receiving pain medication from the nurse at bedside. Objective Data Objective Data Vital Signs: Vital Signs Temp Pulse Resp BP Pulse Ox O2 Del Method 96.8 F L 65 16 99/60 99 Room Air 03/16/24 08:00 03/16/24 08:00 03/16/24 08:00 03/16/24 08:00 03/16/24 08:00 03/16/24 08:00 Oxygen Delivery Method Room Air Weight: 144 lb Body Mass Index (BMI) 25.4 Intake & Output: Intake and Output for Last 24 Hours 03/14/24 03/15/24 03/16/24 23:59 23:59 23:59 Intake Total 2105 / 2105 Output Total 1425 / 1425 300 / 300 Balance 680 / 680 -300 / -300 Lab / Micro Data 03/16/24 05:05 Labs: Laboratory Results - last 24 hr 03/16/24 05:05: WBC 10.5, RBC 2.83 L, Hgb 8.8 L, Hct 25.4 L, MCV 89.8, MCH 31.1, MCHC 34.6, RDW Std Deviation 45.0 H, RDW Coeff of Marcial 13.7, Plt Count 161, MPV 10.1 Physical Exam Const alert and no apparent distress General Appearance: comfortable HEENT normocephalic Resp normal respiratory effort GI soft to palpation and non-distended GI Narrative: Non acute, moderate tenderness, dressing c/d/i Extremity normal to inspection and no calf tenderness Assessment & Plan (1) Placental abruption: QUALIFIERS: Trimester: third trimester Qualified Code(s): O45.93 - Premature separation of placenta, unspecified, third trimester COMMENT: 23yo @ 36&3 (2) Acute blood loss anemia: (3) S/P section: PLAN: POD#1 s/p emergent C/S for placental abruption. Doing okay. No symptoms of anemia at this time. Recheck CBC in AM. Discussed likely IV iron prior to discharge. Continue routine post op care.
[2024-03-16 15:30] VITALS: BP 106/51; PULSE 80; RESP 16; TEMP 36.2; O2SAT 99
[2024-03-16 20:07] VITALS: BP 110/68; PULSE 87; RESP 16; TEMP 36.7; O2SAT 100
[2024-03-17] MEDS: Acetaminophen 500 MG Tablet 1000 MG PO ×4 (00:07→18:34)
[2024-03-17 02:00] VITALS: BP 120/67; PULSE 86; RESP 16; TEMP 36.2; O2SAT 99
[2024-03-17] MEDS: Ibuprofen 600 MG Tablet PO ×4 (02:52→22:12)
[2024-03-17 06:26] LABS: Hematocrit 24.1 % (37-47); Mean Corp Hgb Conc 33.2 g/dL (32-36); Mean Corpuscular Hgb 30.4 pg (27.0-32.0); Mean Corpuscular Volume 91.6 fL (81-99); Mean Platelet Vol. 10.3 fl (6.2-12.0); Platelet Count 184 K/mm3 (150-450); RBC Distribution Width CV 13.9 % (11.6-14.6); RBC Distribution Width SD 46.2 fl (35.1-43.9); Red Blood Count 2.63 M/mm3 (4.2-5.4); White Blood Count 9.2 K/mm3 (4.4-11.0)
[2024-03-17] MEDS: oxyCODONE 5 MG Tablet PO ×4 (08:12→23:51)
[2024-03-17 08:19] VITALS: BP 101/55; PULSE 73; RESP 14; TEMP 36.6; O2SAT 99
--- NOTE | 2024-03-17 08:24 | PCM.PN.OB ---
Subjective Subjective Doing well per patient and nursing staff. Ambulating and taking PO without difficulty. Voiding and passing flatus. Pain controlled. Bottle feeding. Denies headache, visual changes, chest pain, shortness of breath, leg pain or increased bleeding. Lochia normal. Objective Data Objective Data Vital Signs: Vital Signs Temp Pulse Resp BP Pulse Ox O2 Del Method 97.8 F 73 14 101/55 L 99 Room Air 03/17/24 08:19 03/17/24 08:19 03/17/24 08:19 03/17/24 08:19 03/17/24 08:19 03/17/24 08:19 Oxygen Delivery Method Room Air Weight: 144 lb Body Mass Index (BMI) 25.4 Intake & Output: Intake and Output for Last 24 Hours 03/15/24 03/16/24 03/17/24 23:59 23:59 23:59 Intake Total 2105 / 2105 Output Total 1425 / 1425 300 / 300 Balance 680 / 680 -300 / -300 Lab / Micro Data 03/17/24 06:05 Labs: Laboratory Results - last 24 hr 03/17/24 06:05: WBC 9.2, RBC 2.63 L, Hgb 8.0 L, Hct 24.1 L, MCV 91.6, MCH 30.4, MCHC 33.2, RDW Std Deviation 46.2 H, RDW Coeff of Marcial 13.9, Plt Count 184, MPV 10.3 ROS Constitutional Constitutional: Reports systems reviewed and no addt'l complaints, except as documented; Denies headache(s) Eyes Eyes: Denies acute decrease in peripheral vision, blurry vision or change in vision ENT HEENT: Reports systems reviewed and no addt'l complaints, except as documented Cardiovascular Cardiovascular: Denies chest pain or dizziness Respiratory/Chest Respiratory/Chest: Denies cough, dyspnea, dyspnea on exertion, shortness of breath at rest or shortness of breath with exertion Gastrointestinal Gastrointestinal: Denies abdominal pain, diarrhea, nausea or vomiting Genitourinary Genitourinary: Denies abdominal discomfort Musculoskeletal Musculoskeletal: Denies limited range of motion Integumentary Integumentary: Reports systems reviewed and no addt'l complaints, except as documented Neurologic Neurologic: Reports systems reviewed and no addt'l complaints, except as documented Psychiatric Psychiatric: Reports systems reviewed and no addt'l complaints, except as documented Endocrine Endocrinology: Reports systems reviewed and no addt'l complaints, except as documented Hematologic/Lymphatic Hematologic/Lymphatic: Reports systems reviewed and no addt'l complaints, except as documented Allergic/Immunologic Allergic/Immunologic: Reports systems reviewed and no addt'l complaints, except as documented Physical Exam Const alert and oriented x3 General Appearance: cooperative Orientation / Consciousness: awake, oriented to person, oriented to place and oriented to time Exam Limitations: no limitations HEENT normocephalic Head and Scalp: normal to inspection, normocephalic and atraumatic Face and Sinus: normal facial exam Eyes General Eye: normal appearance of both eyes Neck full ROM Chest Chest: symmetrical chest wall rise Resp normal respiratory effort and normal air movement Auscultation: clear to auscultation bilaterally Cardio regular rate, regular rhythm, S1 normal heart sound, S2 normal heart sound, no murmurs, no rub, no gallops and no clicks GI normal to inspection, nondistended, normoactive bowel sounds GI Narrative: dressing dry and intact. appearance of the vagina normal Bladder / Kidney Exam: no CVA tenderness Back/Spine normal ROM Extremity normal to inspection and full ROM Skin no rashes or lesions noted Neuro oriented x3, CN's II-XII intact bilaterally and moves all extremities Sensorium / Orientation: awake, alert and oriented to person Motor Exam: clonus absent Deep Tendon Reflexes: Rt Patellar (L4): 2+ and Lt Patellar (L4): 2+ Assessment & Plan (1) S/P section: (2) Acute blood loss anemia: PLAN: Plan 1) Routine postoperative care 2) Vitals stable 3) Hgb 8.0, will give IV iron. 4) Bottle feeding 5) I&O 6) Planning D/C home tomorrow 7) Pain management
[2024-03-17] MEDS: 0.9% Saline Lock 10 ML Syringe IV ×3 (09:33→11:06)
[2024-03-17] MEDS: Iron Sucrose Complex 200 MG in 0.9% Normal Saline (100mL Bag) 100 ML 220 MG IV (10:15)
[2024-03-17] MEDS: Senna/Docusate Sodium 1 Tablet PO (10:53)
[2024-03-17 12:00] VITALS: BP 121/67; PULSE 91; RESP 12; TEMP 36.5; O2SAT 97
--- NOTE | 2024-03-17 13:49 | CASEMGMT ---
Social Work Assessment Labor and Delivery Unit Patient Address:[address] [place] [address] Phone number: [phone] Date of Referral: 03/15/24 Time of Referral:? 1751 Referred By: Mell Interiano Date of Intervention: ??03/17/24 Time of Intervention:? 1020 Reason for Referral:? anxiety and depression Sw completed chart review and acknowledges social work consult due to maternal mental health history. Sw presented to bedside and introduced self to mother of baby (ANTIONETTE- Paula) and maternal grandma who was visiting with MOB. MOB stated that it was okay to complete assessment with maternal grandma present. Sw explained reason for sw involvement and completed psychosocial assessment. MOB completed Arp Depression Scale. History obtained from: medical records, MOB and maternal grandma Household composition: Currently residing in the family home is MOB, father of baby (MARCK Doty) and ANTIONETTE's 2 year old son (Shelly Trevizo). baby to join residence when ready for discharge. Patient's parent/guardian status:? ?ANTIONETTE states that she and NEGRO have been together for about 2.5 years, this is FOClaire's first baby, and ANTIONETTE's second baby. ANTIONETTE denies domestic violence or intimate partner violence. Medical History: ANTIONETTE is 23 year old female who is 4, para 1- now 2 following labor and delivery. ANTIONETTE received routine care during with [facility]. ANTIONETTE presented to hospital and delivered baby via stat under general anesthesia following an RAISSA. ?ANTIONETTE delivered baby at 36 weeks gestation on 03/15/24. Baby boy, named Arley Harris, was born weighing 6lb 7oz with apgars of 6 and 9 at one and five minutes of life, respectfully. ANTIONETTE is breast feeding baby and reports that baby will be followed by Dr. Lloyd for pediatrics. Educational Status:? ANTIONETTE states that both parents completed 11th grade and some of 12th, but did not graduate. Financial Status: FOClaire is employed he works for [employer]. MOB states that she was previously working for [employer], but coincidentally they closed for the season at the same time that MOB had baby. Supplies:?? MOB states that she has everything that she needs for baby, including: car seat, safe sleep space, clothes, diapers and wipes. Childcare/Caregiver(s):? ANTIONETTE will be the primary caregiver to baby, along with FOClaire when he is not working. Maternal grandma will also be of assistance for MOB and baby. Transportation:?? ANTIONETTE states that she does not drive, maternal grandma takes her to all of her scheduled doctors/ medical appointments and will be able to do the same for baby. NEGRO has his drivers license and reliable means of transportation. Programs/Agencies Involved: ??ANTIONETTE has insurance through [employer] as well as SNAP benefits. ANTIONETET is also already connected to [employer]. ? Children Services/Legal Issues:??? No prior involvement with children's services. No concerns at this time warranting a referral to be made. Behavioral Health Issues: ??Mental Health History:??ANTIONETTE states that NEGRO has anxiety and is prescribed medication to help with this, but she is not sure what it is called. ANTIONETTE states that she has anxiety and depression, diagnosed with she was a teenager. MOB states that she is not prescribed any medications to help her manage her mental health symptoms. MOB states that she does not feel as though her mental health impacts her daily ability to function. ANTIONETTE states that she did experience baby blues/ anxiety after her first baby was born. ANTIONETTE reports that at that time she was extra emotional and would cry a lot. ANTIONETTE completed an [place] scale and her score was a 2. Sw provided education and support. ? Substance Use History:?ANTIONETTE denies substance use prior to and during . ? Family History:??ANTIONETTE denies family history of substance use and significant mental health diagnoses. ??? Drug Screens: ??No drug screens observed in chart review. Family/Social Stressors:? ANTIONETTE denies any issues, concerns or stressors at this time. Support Systems: ANTIONETTE identifies that her mom is her biggest support person at this time. Depression/Shaken Baby/Safe Sleeping:? Sw educated ANTIONETTE on signs and symptoms of baby blues and mood and anxiety disorders. MOB expressed understanding, and states at this time she is feeling okay. MOB states that she is appreciative of the information provided, because the first time she was not educated and did not know what she was experiencing. MOB states that if she were to struggle during this period, FOClaire and maternal grandma would recognize that she is struggling and would know how to help and support her. Sw educated MOB on shaken baby prevention and ABCs of safe sleep, MOB expressed understanding. ASSESSMENT:? MOB and baby admitted following labor and delivery. MOB with mental health history of anxiety and depression, is not prescribed any medications. MOB familiar with signs and symptoms of baby blues and mood and anxiety disorders to look for after experiencing the baby blues following the of her first baby. MOB has natural supports in place and has obtained all necessary baby supplies. MOB scored low on the Arp Depression Scale (2). MOB receptive to information and support provided by luther. MOB made and maintained eye contact, however at times throughout assessment would look at her mom to help her answer questions asked by luther. PLAN:? MOB and baby to be discharged when medically ready. Luther provided literature for parents to review regarding: shaken baby prevention, ABCs of safe sleep, Help Me Grow, list of county resources that are accessible to family in time of need, and signs and symptoms of baby blues and mood and anxiety disorders to be on the lookout for. ?No other services requested or indicated. Evelyn Ly, PANTS MAKER, EXECUTIVE MARKETING ASSISTANT
--- NOTE | 2024-03-17 14:24 | NURSING ---
Pt requesting oxy ir today for c/o abdominal pain but states she is also having lower back pain. Ambulation encouraged as she has been reclining in the bed most of the morning. Pt in shower and we noted her center lower back has a very large lump, approx. the size of an adult fist, it is hard and firm. Distal to the lump the spine caves in several inches. Prince Carter, charge nurse looked at it and aBrt Vazquez notified. Pt informed that Selam will be over later this afternoon to assess.
--- NOTE | 2024-03-17 16:57 | NURSING ---
pt states her back is feeling better; she has been out of bed, moving around more. The area at the lower back is smaller now. Using a kpad.
[2024-03-17 20:44] VITALS: BP 101/67; PULSE 74; RESP 16; TEMP 36.3
[2024-03-18 03:39] VITALS: BP 108/56; PULSE 60; RESP 16; TEMP 36.6; O2SAT 97
[2024-03-18] MEDS: Ibuprofen 600 MG Tablet PO ×2 (04:41→10:32)
[2024-03-18] MEDS: oxyCODONE 5 MG Tablet PO (05:29)
[2024-03-18] MEDS: Acetaminophen 500 MG Tablet 1000 MG PO ×2 (06:39→12:38)
[2024-03-18 08:00] VITALS: BP 109/71; PULSE 97; RESP 16; TEMP 36.6; O2SAT 99
--- NOTE | 2024-03-18 08:37 | PCM.PN.OB ---
Subjective Subjective Doing well. Ambulating and taking PO without difficulty. Voiding and passing flatus. Pain controlled. Denies headache, visual changes, chest pain, shortness of breath, leg pain or increased bleeding. Lochia normal. Objective Data Objective Data Vital Signs: Vital Signs Temp Pulse Resp BP Pulse Ox O2 Del Method 97.8 F 60 16 108/56 L 97 Room Air 03/18/24 03:39 03/18/24 03:39 03/18/24 03:39 03/18/24 03:39 03/18/24 03:39 03/18/24 03:39 Oxygen Delivery Method Room Air Weight: 65.317 kg Body Mass Index (BMI) 25.4 Intake & Output: Intake and Output for Last 24 Hours 03/16/24 03/17/24 03/18/24 23:59 23:59 23:59 Intake Total 110 / 110 Output Total 300 / 300 Balance -300 / -300 110 / 110 Lab / Micro Data 03/17/24 06:05 ROS Constitutional Constitutional: Denies fatigue, fever(s) or malaise Eyes Eyes: Denies change in vision ENT HEENT: Denies dizziness or headache(s) Cardiovascular Cardiovascular: Denies chest pain, dyspnea or lightheadedness Respiratory/Chest Respiratory/Chest: Denies cough or dyspnea Gastrointestinal Gastrointestinal: Denies change in bowel habits Genitourinary Genitourinary: Denies burning urination or genital lesions Integumentary Integumentary: Denies rash Neurologic Neurologic: Denies confusion, dizziness, headache(s), numbness or weakness Physical Exam Const alert General Appearance: cooperative GI GI Narrative: soft, moderate distention, fundus firm, appropriately tender. Abdominal bandage clean dry and intact Assessment & Plan (1) S/P section: (2) Placental abruption: QUALIFIERS: Trimester: third trimester Qualified Code(s): O45.93 - Premature separation of placenta, unspecified, third trimester COMMENT: 23yo @ 36&3 (3) 36 weeks gestation of : PLAN: Plan Discharge home
--- NOTE | 2024-03-18 08:39 | PCM.DC.SUM ---
Providers Date of Admission: 03/15/24 Date of Discharge: 03/18/24 Primary Care Physician: No Primary Care Phys Reason For Visit: PRIMARY C SECTION Diagnosis Discharge Diagnosis (1) S/P section: Status: Acute Code(s): Z98.891 - History of uterine scar from previous surgery (2) Placental abruption: Status: Acute Code(s): O45.90 - Premature separation of placenta, unspecified, unspecified trimester Qualifiers: Trimester: third trimester Qualified Code(s): O45.93 - Premature separation of placenta, unspecified, third trimester (3) 36 weeks gestation of : Status: Acute Code(s): Z3A.36 - 36 weeks gestation of Plan Discharge home Medications at Discharge Home Medications prenat.vits,michael,tkc-gvld-ggygx 1 tab PO DAILY 03/09/22 acetaminophen 500 mg tablet 1,000 mg (2 x 500 mg) PO Q6H #30 tabs 03/18/24 ibuprofen 600 mg tablet 600 mg PO Q6H #30 tabs 03/18/24 oxycodone 5 mg tablet 5 mg PO Q6H 5 days #20 tabs 03/18/24 Hospital Course Operations section Procedures None Summary of Care Provided Minutes Spent on Discharge: 20 Hospital Course: Presented to L&D by squad with bleeding. Found to be abrupting. Emergent c/s performed. Uncomplicated delivery and Physical Exam Const alert General Appearance: cooperative GI GI Narrative: soft, moderate distention, fundus firm, appropriately tender. Abdominal bandage clean dry and intact Weight / BMI Weight Weight: 65.317 kg Body Mass Index (BMI) 25.4 ABG / Lab / Microbiology Data 03/17/24 06:05 D/C Instructions Discharge Diet: No restrictions May resume sexual activity in: 4-6 weeks Lifting Restrictions: 20 pounds Additional Activity Instructions: Nothing in the vagina for 4-6 weeks. You may return to work/school in 6 weeks. Call your doctor if your incision/area has: Continuous Slow Oozing, Sudden Increased Bleeding, Increased Pain/ Swelling, Increased Redness and Foul Smelling Discharge Call your doctor if you observe: Fever of 101 or Higher and Using more than 1 pad per hour (for 2 hours) Suture Line Care: Avoid Pulling/Pushing and Avoid Pinching/Bending Cleanse incision/area with: Keep Dressing Clean & Dry Please Follow Up With: Marybeth Srinivasan MD When: Call to make an appointment for an incision check in 1-2 [phone]. You will need a post check in 6 weeks. Meaningful Use Info Meaningful Use Meaningful Use Diagnoses (Choose all that apply): None applicable Ischemic Stroke Statin Dosing Therapy Reference: STATIN DOSE THERAPY REFERENCE: * Patients > 75 years receive moderate or high dose statin therapy. * Patients 75 years or YOUNGER should receive HIGH intensity statin dose unless contraindicated. You will be required to document reason for non-treatment if statin daily dose does not meet guidelines. HIGH DOSE STATIN THERAPY DAILY Atorvastatin > than or = to 40 mg Rosuvastatin > than or = to 20 mg Amlodipine + Atorvastatin > than or = to 2.5/40 mg Ezetimibe + Simvastatin 10/80 mg Simvastatin 80mg Discharge Plan Admission Admit Date/Time: 03/15/24 07:18 Primary Reason for Your Visit: labor Attending Provider: Mell Interiano Primary Care Provider: Care Physician,No Primary Discharge Orders/Prescriptions Prescriptions: New acetaminophen 500 mg Tablet 1,000 mg PO Q6H Qty: 30 0RF ibuprofen 600 mg Tablet 600 mg PO Q6H Qty: 30 0RF oxycodone 5 mg Tablet 5 mg PO Q6H 5 Days Qty: 20 0RF Continued prenat.vits,michael,acc-khtl-twbtx Tablet 1 tab PO DAILY Discontinued cephalexin 500 mg capsule 500 mg PO Q12 Qty: 14 0RF aspirin 81 mg tablet,delayed release (DR/EC) 81 mg PO DAILY Referrals / Follow Up: Care Physician,No Primary [Primary Care Provider] - Disposition Disposition (needs filled in before D/C Order can be placed): Home, Self Care
[2024-03-18] MEDS: Senna/Docusate Sodium 1 Tablet PO (10:32)
[2024-03-18 11:54] VITALS: BP 107/74; PULSE 90; RESP 17; TEMP 36.7; O2SAT 98
== END 2024-03-18 13:54 | disposition home or self-care (01) | DRG 540 ==
PROVIDERS: Obstetrics & Gynecology; Admitting Provider Advanced Practice Midwife; Visit Provider Advanced Practice Midwife
DX: O45.93 Premature separation of placenta, unspecified, third trimester (principal); D62 Acute posthemorrhagic anemia; O76 Abnormality in fetal heart rate and rhythm complicating labor and delivery; O90.81 Anemia of the puerperium; Z37.0 Single live birth; Z3A.36 36 weeks gestation of pregnancy; Z87.891 Personal history of nicotine dependence
CPT/HCPCS: 59050; 85025; 85027; 86780; 86850; 86900; 86901; 86920; 99221; J1756; J7120; A4216; G0378

== ENCOUNTER 2024-03-26 18:53 | Observation (INO) | payer MEDICAID, SELFPAY ==
[2024-03-26 18:59] VITALS: BP 124/96; PULSE 99; RESP 16; TEMP 36.6; O2SAT 100; BMI 21.9
--- NOTE | 2024-03-26 19:14 | US_ITS ---
EXAM: US PELVIS TRANSABDOMINAL, COMPLETE CLINICAL INDICATION: bleeding status post 2 weeks -- Assess for retained products or clots TECHNIQUE: Transabdominal pelvic ultrasound was performed with grayscale and color Doppler imaging. COMPARISON: No recent exam, OB ultrasound October 04, 2022. FINDINGS: UTERUS/CERVIX: Uterus is anteroflexed, 10.6 cm x 5.9 cm x 9.3 cm. There is anechoic fluid distending the endometrial canal to roughly 7 mm AP. There is slightly irregular fluid-endometrial interface but no vascular retained products of conception on focused Doppler images. Scant heterogeneous nonvascular material and slight anechoic fluid in the cervical canal. Cervical canal is roughly 4.5 mm. AP OVARIES: Not demonstrated. FREE FLUID: None. BLADDER: Partially collapsed, not well evaluated. Wall is normal thickness for degree of distention. US/Pelvic (Non ) IMPRESSION: Predominantly anechoic and nonvascular fluid mildly distending the uterus and cervix, consistent with blood products. No typical vascular retained products of conception are identified. Electronically Signed: Suni Schmitz MD at 20:42 EDT ,
[2024-03-26] MEDS: 0.9% Normal Saline (1000mL) 1,000 ML 999 ML IV (19:23)
[2024-03-26 19:28] LABS: Absolute Lymphocyte Count 1.29 X10^3/uL (0.83-4.51); Absolute Neutrophil Count 5.8 X10^3/uL (2.0-7.7); Basophil# 0.06 X10^3/uL; Basophil% 0.8 % (0-1); Eosinophil# 0.19 X10^3/uL; Eosinophils% 2.4 % (0-5); Hematocrit 36.6 % (37-47); Lymphocyte # 1.29 X10^3/ul (0.83-4.51); Lymphocyte % 16.3 % (19-41); Mean Corp Hgb Conc 32.8 g/dL (32-36); Mean Corpuscular Hgb 29.7 pg (27.0-32.0); Mean Corpuscular Volume 90.6 fL (81-99); Mean Platelet Vol. 9.3 fl (6.2-12.0); Monocyte# 0.57 X10^3/uL; Monocyte% 7.2 % (0-10); NRBC Flagged by Analyzer 0 % (0-5); Neutrophil # 5.78 X10^3/uL (2.7-7.7); Neutrophil % 72.8 % (47-70); Platelet Count 453 K/mm3 (150-450); RBC Distribution Width CV 13.2 % (11.6-14.6); RBC Distribution Width SD 43.5 fl (35.1-43.9); Red Blood Count 4.04 M/mm3 (4.2-5.4); White Blood Count 7.9 K/mm3 (4.4-11.0)
--- NOTE | 2024-03-26 20:43 | ED.VIS.FEGU ---
HPI HPI - Female History of Present Illness Chief Complaint: Vag Bleeding Detail of Chief Complaint: Abrupt onset of vaginal bleeding Informant: patient and spouse/S.O. Pain Pain: Positive for Pelvic Pain Onset: Hours Context: Sudden Onset Timing: Continuous Quality: Positive for Cramping Current Severity: Mild Maximum Severity: Moderate Worsened by: - (Not applicable) Relieved by: - (Nothing) Bleeding Issue: Positive for Vaginal bleeding and Passing clots Onset: Today and Hours Context: Sudden Onset Timing: Continuous Current Severity: Heavy (Saturated blood through her depends diaper and clothing) Maximum Severity: Heavy Associated Symptoms Associated Symptoms: Negative for Dysuria, Frequency, Urgency or Hematuria Narrative Narrative: Patient is a G4, P2 female who had an emergent for placental abruption and demise on March 15, 2024. This was performed by Dr. Kizzy Ponce. Patient endorses lightheadedness. Patient's blood type is O+. She does report orthostatic lightheadedness. She states this started abruptly. She was not doing anything at the time. Prior similar symptoms: No Recent Illness/Hospitalization: Yes PFSH PFS Medical History Depression Anxiety Tonsil and adenoid disease, chronic Home Medications ?Medication ?Instructions ?Recorded ?Last Taken ?Type acetaminophen 500 mg tablet 1,000 mg (2 x 500 mg) PO Q6H #30 03/18/24 Unknown Rx tabs ibuprofen 600 mg tablet 600 mg PO Q6H #30 tabs 03/18/24 Unknown Rx vitamin with calcium 1 tab PO DAILY 03/26/24 Unknown History no.72-iron 27 mg-folic acid 1 mg tablet (WesTab Plus) Allergy/AdvReac Type Severity Reaction Status Date / Time No Known Allergies Allergy Verified 03/15/24 08:57 Surgical History History of gynecologic surgery History of placement of ear tubes H/O hernia repair Social History household members: family Smoking Status: Former smoker alcohol intake: never substance use type: does not use ROS ROS ED Constitutional Constitutional ED: Denies chills, fever(s), subjective or sweats Eyes Eyes: Denies blurry vision or change in vision Cardiovascular Cardiovascular: Reports racing heartbeat; Denies chest pain or palpitations Respiratory/Chest Respiratory/Chest: Denies cough, dyspnea or dyspnea on exertion Gastrointestinal Gastrointestinal: Denies abdominal pain, nausea or vomiting Integumentary Denies rash Neurologic Neurologic: Denies weakness Psychiatric Psychiatric: Reports anxiety Hematologic/Lymphatic Hematologic/Lymphatic: Denies easy bleeding or easy bruising EXAM Physical Exam Const Vital Signs: 03/26/24 18:59 03/26/24 20:53 Temperature 98 F Temperature Source Temporal Pulse Rate 99 64 Respiratory Rate 16 16 Blood Pressure 124/96 H 117/79 Blood Pressure Mean 105 91 Pulse Ox 100 99 Oxygen Delivery Method Room Air Room Air Positive well nourished and well developed Constitutional Narrative: Patient is anxious. She is pale. She is tachycardic. Moderate reveals a narrow complex tachycardia with a rate of 110. General Appearance ED: well developed and pallor; Negative for odor of alcohol detected HEENT Reports moist mucous membranes HEENT Narrative: Head is atraumatic normocephalic. Ears normal. Nares patent. Eyes PERRL and EOMs intact bilaterally General Eye ED: Negative for pale conjunctiva or scleral icterus Neck no lymphadenopathy, supple and no JVD Resp normal respiratory effort and clear to auscultation bilaterally Cardio regular rhythm, S1 normal heart sound, no murmurs and no JVD Rate: tachycardic GI normal to inspection, nondistended, normoactive bowel sounds and soft to palpation; Negative for non-tender, non-distended or no masses Palpation: tender suprapubic Narrative: External genitalia normal. There is blood with clots in the vaginal vault. Speculum exam is suboptimal because of not having a proper bed. She possibly has a rectocele. Unable to visualize the cervix. Bimanual exam indicates the uterus is still enlarged and outside of the pelvis. She complains of significant tenderness. External os was closed to fingertip. Back/Spine no CVA tenderness Extremity normal to inspection Neuro oriented x3, CN's II-XII intact bilaterally and no sensory deficits noted Sensorium / Orientation: alert Motor Exam: strength 5/5 throughout Psych Mood & Affect: anxious Skin no rashes or lesions noted and no wounds General Skin Exam: pallor MDM MDM MDM Narrative Medical decision making narrative: Call was placed to the OB on-call for [facility] Was well. I got the mold runner. She was informed of patient's history, presentation test ordered. She requested call back once the ultrasound has been read. Patient was typed and screened. Lab Data Attestation: I reviewed the patient's lab results. Lab results narrative: CBC is unremarkable. H&H is higher than prior. Labs: Laboratory Results - last 24 hr 03/26/24 19:09 WBC 7.9 RBC 4.04 L Hgb 12.0 Hct 36.6 L MCV 90.6 MCH 29.7 MCHC 32.8 RDW Std Deviation 43.5 RDW Coeff of Marcial 13.2 Plt Count 453 H MPV 9.3 Immature Gran % (Auto) 0.500 Neut % (Auto) 72.8 H Lymph % (Auto) 16.3 L Greene % (Auto) 7.2 Eos % (Auto) 2.4 Baso % (Auto) 0.8 Absolute Neuts (auto) 5.8 Absolute Lymphs (auto) 1.29 Nucleated RBC % 0 Blood Type O POSITIVE Antibody Screen NEGATIVE Radiography Diagnostic Testing: Clinical Impression(s) from Imaging Studies Pelvis Ultrasound 03/26/24 19:14 IMPRESSION: Predominantly anechoic and nonvascular fluid mildly distending the uterus and cervix, consistent with blood products. No typical vascular retained products of conception are identified. Electronically Signed: Suni Schmitz MD at 20:42 EDT , Management Discussion w/another healthcare provider: Stock Worker And Deliverer Treatment and Re-Evaluation Narrative: Dr. Mendoza was well did see patient emergency department. She is planning on admitting her overnight for observation and serial H&H's in light of her complex past medical history with recurrent placental abruption oh and bleeding problems. Discharge Plan Triage Chief Complaint: Vag Bleeding ED Provider: James Smith Dx/Rx/DC Orders Clinical Impression: hemorrhage of vagina, Sinus tachycardia, Orthostatic lightheadedness Prescriptions: No Action acetaminophen 500 mg Tablet 1,000 mg PO Q6H Qty: 30 0RF ibuprofen 600 mg Tablet 600 mg PO Q6H Qty: 30 0RF WesTab Plus 27 mg iron- 1 mg tablet 1 tab PO DAILY Primary Care Provider: Care Physician,No Primary Referrals: Care Physician,No Primary [Primary Care Provider] - Print Language: Luxembourgish Disposition Disposition: Acute Care Hospital [facility]
[2024-03-26 20:53] VITALS: BP 117/79; PULSE 64; RESP 16; O2SAT 99
--- NOTE | 2024-03-26 21:41 | HP.PCM.OB_ITS ---
HPI - General General Date of Admission: 03/26/24 Date of Service: 03/26/24 Chief Complaint: vaginal bleeding HPI Narrative ANDREW ROBERTS, is a 23 F who presents with vaginal bleeding. Patient had a section 2 weeks ago which was emergent for a placental abruption. She had her early visit today in the office and is doing well. After her visit she reports an episode of heavy vaginal bleeding that saturated through c lothing. She has been feeling lightheaded for several days. She is offers no complaints. Maternal Data Information JOHAN Calculator Estimated Delivery Date Method Current WG Current Estimate 04/09/24 Manual 38w 0d PFSH PFSH Medical History Depression Anxiety Tonsil and adenoid disease, chronic Home Medications ?Medication ?Instructions ?Recorded ?Last Taken ?Type acetaminophen 500 mg tablet 1,000 mg (2 x 500 mg) PO Q6H #30 03/18/24 Unknown Rx tabs ibuprofen 600 mg tablet 600 mg PO Q6H #30 tabs 03/18/24 Unknown Rx vitamin with calcium 1 tab PO DAILY 03/26/24 Unknown History no.72-iron 27 mg-folic acid 1 mg tablet (WesTab Plus) Allergy/AdvReac Type Severity Reaction Status Date / Time No Known Allergies Allergy Verified 03/15/24 08:57 Surgical History History of gynecologic surgery History of placement of ear tubes H/O hernia repair Social History household members: family Smoking Status: Former smoker alcohol intake: never substance use type: does not use History Elective abortions Hx Para 1 Spontaneous abortions Hx # Term Pregnancies Ectopic pregnancies Hx # Pregnancies Multiple births # of living children Vital Signs Vital Signs Vital Signs: 03/26/24 18:59 03/26/24 20:53 Temperature 98 F Temperature Source Temporal Pulse Rate 99 64 Respiratory Rate 16 16 Blood Pressure 124/96 H 117/79 Blood Pressure Mean 105 91 Pulse Ox 100 99 Oxygen Delivery Method Room Air Room Air Weight Weight: 124 lb Body Mass Index (BMI) 21.9 Physical Exam Const alert and no apparent distress Constitutional Narrative: Pale appearing General Appearance: comfortable HEENT normocephalic Resp normal respiratory effort GI soft to palpation, non-tender and non-distended GI Narrative: Incision c/d/i Narrative: Speculum exam performed with scant dark red blood over vaginal mucosa. No active bleeding or clots noted Extremity normal to inspection Labs Labs Labs: Blood Type O POSITIVE Antibody Screen NEGATIVE Hct 36.6 % (37-47) L Hgb 12.0 g/dL (12.0-15.0) Obstetrics Ultrasound Syphilis Total Ab Non-reactive HIV 1&2 Antibody Non-Reactive (Nonreactive) Rhogam given: No Assessment & Plan (1) hemorrhage of vagina: PLAN: Patient had emergent section 2 weeks ago for placental abruption and anemia was noted at that time. Had an episode of vaginal bleeding today that was heavy and saturated through clothing. Initially tachycardic on admission and ER physician reports large amount of bleeding on exam. VSS and Hgb 12. Patient however is pale appearing. Repeat pelvic exam performed with scant dark blood present. Recommend admission for observation with repeat CBC, PT, PTT, fibrinogen tonight and repeat CBC in AM. Start PO Methergine. Repeat CBC in AM. Discussed concern for bleeding disorder given history and need to hematology consultation as outpatient. (2) S/P section:
[2024-03-26 21:48] VITALS: BP 126/83; PULSE 64; RESP 14; TEMP 37; O2SAT 98
[2024-03-26 22:00] VITALS: BP 120/81; PULSE 97; RESP 18; O2SAT 99
[2024-03-26] MEDS: 0.9% Normal Saline (1000mL) 1,000 ML 75 ML IV (22:11)
[2024-03-26 22:56] LABS: International Normalized Ratio 1.2; Prothrombin Time (Protime)PT. 15.5 SECONDS (11.7-14.9)
[2024-03-26 22:57] LABS: Fibrinogen 357 mg/dl (203-444); Partial Thromboplast Time 38.9 Seconds (24.1-36.2)
[2024-03-26 23:00] LABS: Absolute Neutrophil Count 6.7 X10^3/uL (2.0-7.7); Basophil# 0.05 X10^3/uL; Basophil% 0.6 % (0-1); Eosinophil# 0.22 X10^3/uL; Eosinophils% 2.5 % (0-5); Hematocrit 30.4 % (37-47); Hemoglobin 10.1 g/dL (12.0-15.0); Lymphocyte % 14.8 % (19-41); Mean Corp Hgb Conc 33.2 g/dL (32-36); Mean Corpuscular Volume 90.2 fL (81-99); Mean Platelet Vol. 9.1 fl (6.2-12.0); Monocyte# 0.49 X10^3/uL; Monocyte% 5.6 % (0-10); NRBC Flagged by Analyzer 0 % (0-5); Neutrophil # 6.67 X10^3/uL (2.7-7.7); Platelet Count 343 K/mm3 (150-450); RBC Distribution Width SD 42.5 fl (35.1-43.9); Red Blood Count 3.37 M/mm3 (4.2-5.4); White Blood Count 8.8 K/mm3 (4.4-11.0)
[2024-03-26 23:06] VITALS: BMI 23.1
[2024-03-26 23:09] VITALS: BP 119/77; PULSE 59; RESP 16; TEMP 36.8; O2SAT 99
[2024-03-26 23:13] VITALS: BP 103/77; BP 108/78; BP 119/77; PULSE 59; PULSE 69; PULSE 80
[2024-03-27 05:40] VITALS: BP 115/83; PULSE 56; RESP 18; TEMP 36.9; O2SAT 99
[2024-03-27 05:47] LABS: Absolute Lymphocyte Count 1.57 X10^3/uL (0.83-4.51); Absolute Neutrophil Count 4.2 X10^3/uL (2.0-7.7); Basophil# 0.04 X10^3/uL; Basophil% 0.6 % (0-1); Eosinophils% 4.5 % (0-5); Hematocrit 30.5 % (37-47); Lymphocyte # 1.57 X10^3/ul (0.83-4.51); Lymphocyte % 23.7 % (19-41); Mean Corp Hgb Conc 32.8 g/dL (32-36); Mean Corpuscular Hgb 29.9 pg (27.0-32.0); Mean Platelet Vol. 9.2 fl (6.2-12.0); Monocyte# 0.54 X10^3/uL; Monocyte% 8.2 % (0-10); NRBC Flagged by Analyzer 0 % (0-5); Neutrophil # 4.15 X10^3/uL (2.7-7.7); Neutrophil % 62.7 % (47-70); Platelet Count 320 K/mm3 (150-450); RBC Distribution Width CV 13.1 % (11.6-14.6); RBC Distribution Width SD 43.8 fl (35.1-43.9); Red Blood Count 3.35 M/mm3 (4.2-5.4); White Blood Count 6.6 K/mm3 (4.4-11.0)
[2024-03-27 07:49] VITALS: BP 113/72; PULSE 50; RESP 16; TEMP 36.6; O2SAT 96
[2024-03-27] MEDS: 0.9% Normal Saline (1000mL) 1,000 ML 75 ML IV (11:17)
--- NOTE | 2024-03-27 13:09 | PCM.PN.OB ---
Subjective Subjective Patient doing well. Vaginal bleeding has been minimal overnight and this morning. Still feeling fatigued. Objective Data Objective Data Vital Signs: Vital Signs Temp Pulse Resp BP Pulse Ox O2 Del Method 97.9 F 50 L 16 113/72 96 Room Air 03/27/24 07:49 03/27/24 07:49 03/27/24 07:49 03/27/24 07:49 03/27/24 07:49 03/27/24 07:49 Oxygen Delivery Method Room Air Weight: 130 lb 8.218 oz Body Mass Index (BMI) 23.1 Intake & Output: Intake and Output for Last 24 Hours 03/25/24 03/26/24 03/27/24 23:59 23:59 23:59 Intake Total 1000 / 1000 982.5 / 982.5 Balance 1000 / 1000 982.5 / 982.5 Lab / Micro Data 03/27/24 05:09 Labs: Laboratory Results - last 24 hr 03/26/24 19:09: WBC 7.9, RBC 4.04 L, Hgb 12.0, Hct 36.6 L, MCV 90.6, MCH 29.7, MCHC 32.8, RDW Std Deviation 43.5, RDW Coeff of Marcial 13.2, Plt Count 453 H, MPV 9.3, Immature Gran % (Auto) 0.500, Neut % (Auto) 72.8 H, Lymph % (Auto) 16.3 L, [place] % (Auto) 7.2, Eos % (Auto) 2.4, Baso % (Auto) 0.8, Absolute Neuts (auto) 5.8, Absolute Lymphs (auto) 1.29, Nucleated RBC % 0, Blood Type O POSITIVE, Antibody Screen NEGATIVE 03/26/24 22:33: WBC 8.8, RBC 3.37 L, Hgb 10.1 L, Hct 30.4 L, MCV 90.2, MCH 30.0, MCHC 33.2, RDW Std Deviation 42.5, RDW Coeff of Marcial 13.0, Plt Count 343, MPV 9.1, Immature Gran % (Auto) 0.500, Neut % (Auto) 76.0 H, Lymph % (Auto) 14.8 L, [place] % (Auto) 5.6, Eos % (Auto) 2.5, Baso % (Auto) 0.6, Absolute Neuts (auto) 6.7, Absolute Lymphs (auto) 1.30, Nucleated RBC % 0, PT 15.5 H, INR 1.2, APTT 38.9 H, Fibrinogen 357 03/27/24 05:09: WBC 6.6, RBC 3.35 L, Hgb 10.0 L, Hct 30.5 L, MCV 91.0, MCH 29.9, MCHC 32.8, RDW Std Deviation 43.8, RDW Coeff of Marcial 13.1, Plt Count 320, MPV 9.2, Immature Gran % (Auto) 0.300, Neut % (Auto) 62.7, Lymph % (Auto) 23.7, [place] % (Auto) 8.2, Eos % (Auto) 4.5, Baso % (Auto) 0.6, Absolute Neuts (auto) 4.2, Absolute Lymphs (auto) 1.57, Nucleated RBC % 0 Radiography Diagnostic Testing: Radiology Impression Pelvis Ultrasound 03/26/24 19:14 IMPRESSION: Predominantly anechoic and nonvascular fluid mildly distending the uterus and cervix, consistent with blood products. No typical vascular retained products of conception are identified. Electronically Signed: Suni Schmitz MD at 20:42 EDT , Physical Exam Const alert and no apparent distress General Appearance: comfortable HEENT normocephalic Resp normal respiratory effort GI soft to palpation, non-tender and non-distended Narrative: Pad with scant brown blood present on it Assessment & Plan (1) hemorrhage of vagina: PLAN: Bleeding has significantly improved and is brown spotting at this point. Hemoglobin stable this morning from last night. Referral placed to hematology as an outpatient. Discussed discharge instructions with patient and reasons to call with bleeding precautions over the weekend. Will stop Methergine. Continue iron as an outpatient. Will let her eat lunch and get a dose of IV Venofer prior to going home. (2) S/P section: (3) Acute blood loss anemia:
--- NOTE | 2024-03-27 13:11 | DCINST_ITS ---
Discharge Instructions Diet Discharge Diet: No restrictions Activity Discharge Activity: May Shower May resume sexual activity in: 6 weeks Weight Bearing Status: Weight bearing as tolerated Dressing / Incision Call your doctor if you observe: Fever of 101 or Higher, Coldness, Increased Pain, Numbness or Tingling, Change in Color, Inability to urinate, Inability to have a bowel movement, Using more than 1 pad per hour, Shortness of breath, Dizziness, Fainting spells, Swelling in the ankles, Chest pain, Increased palpitations (irregular heartbeat), Calf discomfort and Uncontrolled pain Follow Up Care Test Results: Test results from this visit will be discussed in further detail at your follow- up appointment, if applicable. Discharge Plan Admission Admit Date/Time: 03/26/24 21:54 Primary Reason for Your Visit: bleeding Attending Provider: Ana Monte Primary Care Provider: Care Radha Wilson Primary Discharge Orders/Prescriptions Prescriptions: Continued acetaminophen 500 mg Tablet 1,000 mg PO Q6H Qty: 30 0RF ibuprofen 600 mg Tablet 600 mg PO Q6H Qty: 30 0RF WesTab Plus 27 mg iron- 1 mg tablet 1 tab PO DAILY Referrals / Follow Up: Care Physician,No Primary [Primary Care Provider] - Disposition Disposition (needs filled in before D/C Order can be placed): Home, Self Care
[2024-03-27 14:25] VITALS: BP 116/76; PULSE 65; RESP 18; TEMP 37; O2SAT 97
--- NOTE | 2024-03-27 14:33 | PHA.DC.MR.R ---
Pharmacy [place] Med Reconciliation Pharmacy Service has performed discharge medication reconciliation for this patient. The patient's discharge medication list was reviewed for discrepancies and discrepancies were resolved. Medications at Discharge Home Medications acetaminophen 500 mg tablet 1,000 mg (2 x 500 mg) PO Q6H #30 tabs 03/18/24 ibuprofen 600 mg tablet 600 mg PO Q6H #30 tabs 03/18/24 vitamin with calcium no.72-iron 27 mg-folic acid 1 mg tablet (WesTab Plus) 1 tab PO DAILY 03/26/24
[2024-03-27] MEDS: Iron Sucrose Complex 200 MG in 0.9% Normal Saline (100mL Bag) 100 ML 220 MG IV (14:49)
== END 2024-03-27 17:29 | disposition home or self-care (01) ==
LOC: ED 21:34 → MS3 21:55
PROVIDERS: Admitting Provider Obstetrics & Gynecology; Emergency Provider Emergency Medicine; Visit Provider Obstetrics & Gynecology
DX: O90.81 Anemia of the puerperium (principal); Z87.891 Personal history of nicotine dependence; O72.2 Delayed and secondary postpartum hemorrhage; D62 Acute posthemorrhagic anemia
CPT/HCPCS: 36415; 76856; 85025; 85384; 85610; 85730; 86850; 86900; 86901; 96361; 96365; 99221; 99284; 99406; J1756; J7030; A4216; G0378

== ENCOUNTER 2024-03-30 17:18 | Emergency (ER) | payer MEDICAID, SELFPAY ==
[2024-03-30 17:20] VITALS: BP 105/86; PULSE 80; RESP 16; TEMP 36.6; O2SAT 100; BMI 21.9
--- NOTE | 2024-03-30 18:25 | ED.VIS.FEGU ---
HPI HPI - Female History of Present Illness Chief Complaint: Vag Bleeding Informant: patient Narrative Narrative: Patient is a G4, P2 presenting with vaginal bleeding. She had a performed emergently on 03/15 secondary to placental abruption and distress. Patient is formula feeding. Patient had a gush of bleeding on 03/26 and was admitted for further monitoring associated with acute blood loss. She been having lightheadedness. She had a pelvic ultrasound and was watched for about 24 hours discharged home. She states that she was told that she had another episode of heavy bleeding where she soaked through a pad an hour she should come back to the emergency room. Today patient was seen in the car when she had another gush of bright red blood. She states is not as bad as it was the time before. She no longer feels lightheaded. Denies any recent intercourse. Has been having some mild crampy pelvic pain more so on the left. She states she has had cycles of on and off bleeding which will get a gush of red blood then have brown spotting and this occurs every few days. Patient states that she has had 2 prior miscarriages and at that time had issues where she had more bleeding than she should and states that her uterus will just fill up with blood and then bleed all out once. She was told that she needs to see blood specialist. She denies any other complaints or concerns at this time. She follows with [facility]. [facility] Medical History Former smoker Depression Anxiety Tonsil and adenoid disease, chronic Home Medications ?Medication ?Instructions ?Recorded ?Last Taken ?Type acetaminophen 500 mg tablet 1,000 mg (2 x 500 mg) PO Q6H #30 03/18/24 Unknown Rx tabs ibuprofen 600 mg tablet 600 mg PO Q6H #30 tabs 03/18/24 Unknown Rx vitamin with calcium 1 tab PO DAILY 03/26/24 Unknown History no.72-iron 27 mg-folic acid 1 mg tablet (WesTab Plus) Allergy/AdvReac Type Severity Reaction Status Date / Time No Known Allergies Allergy Verified 03/30/24 17:19 Surgical History History of gynecologic surgery History of placement of ear tubes H/O hernia repair Social History household members: family Smoking Status: Former smoker alcohol intake: never substance use type: does not use ROS ROS ED Constitutional Constitutional ED: Denies chills or fever(s) Respiratory/Chest Respiratory/Chest: Denies cough Gastrointestinal Gastrointestinal: Reports abdominal pain; Denies nausea or vomiting Genitourinary Genitourinary ED: Reports other Details: hematuria ; Denies dysuria or urinary frequency Musculoskeletal Musculoskeletal: Denies arthralgias or myalgias Integumentary Denies rash Neurologic Neurologic: Denies paresthesias or weakness Hematologic/Lymphatic Hematologic/Lymphatic: Denies easy bleeding or easy bruising EXAM Physical Exam Const Vital Signs: 03/30/24 17:20 03/30/24 19:19 03/30/24 21:00 Temperature 98 F Temperature Source Oral Pulse Rate 80 59 L 59 L Respiratory Rate 16 16 16 Blood Pressure 105/86 H 122/89 H 115/82 H Blood Pressure Mean 92 100 93 Pulse Ox 100 98 99 Oxygen Delivery Method Room Air Room Air Room Air Positive well nourished and well developed General Appearance ED: well developed and NAD; Negative for pallor HEENT Reports moist mucous membranes Eyes PERRL Neck supple Chest Wall inspection of chest normal Resp normal respiratory effort and clear to auscultation bilaterally Cardio regular rate and regular rhythm GI normal to inspection, nondistended, normoactive bowel sounds and soft to palpation GI Narrative: Very mild suprapubic tenderness Palpation: Negative for guarding or rigid Narrative: exam performed chaperoned with nurse. Normal external genitalia. There is thick yellow lochia with what appears to be old blood in the cervix. No odor appreciated. No cervical motion tenderness. Extremity normal to inspection Neuro oriented x3 Sensorium / Orientation: alert Motor Exam: Negative for general weakness Psych mental status grossly normal Skin no rashes or lesions noted General Skin Exam: Negative for pallor MDM MDM MDM Narrative Medical decision making narrative: Patient evaluated for gush of vaginal bleeding. She is 15 days and has already had 1 admission for bleeding. Hemoglobin is actually uptrending today at 11.3. Vital signs are normal. She is well-appearing. No active hemorrhage in the emergency room. No obvious bright red bleeding on exam. From prior admission I did review her pelvic ultrasound which did not show findings medical assistant with any retained proximal of conception but did show blood in the uterus. She is not having any fever or cervical motion tenderness and low suspicion for endometritis. She has a normal white blood cell count. Case is discussed with [facility] [facility] on-call, Dr. Srinivasan. Patient will follow-up outpatient given that she is not having active bleeding and is hemodynamically stable. Patient agreeable this plan of care. Given return precautions. Counseled to follow-up with her [employer]. Lab Data Labs: Laboratory Results - last 24 hr 03/30/24 18:28 WBC 8.3 RBC 3.77 L Hgb 11.3 L Hct 33.5 L MCV 88.9 MCH 30.0 MCHC 33.7 RDW Std Deviation 41.4 RDW Coeff of Marcial 12.8 Plt Count 401 MPV 9.4 Immature Gran % (Auto) 0.500 Neut % (Auto) 69.5 Lymph % (Auto) 19.6 [place] % (Auto) 5.0 Eos % (Auto) 4.6 Baso % (Auto) 0.8 Absolute Neuts (auto) 5.7 Absolute Lymphs (auto) 1.62 Nucleated RBC % 0 PT 14.1 INR 1.1 APTT 37.1 H Sodium 143 Potassium 3.5 Chloride 112 H Carbon Dioxide 24.0 Anion Gap 7 BUN 10 Creatinine 0.55 Estim Creat Clear Calc 133.84 Est GFR (MDRD) Af Amer 178 Est GFR (MDRD) Non-Af 147 BUN/Creatinine Ratio 18.1 Glucose 105 Calcium 9.1 Discharge Plan Triage Chief Complaint: Vag Bleeding ED Provider: Trupti Lopez Dx/Rx/DC Orders Clinical Impression: bleeding Instructions: Hemorrhage Prescriptions: No Action acetaminophen 500 mg Tablet 1,000 mg PO Q6H Qty: 30 0RF ibuprofen 600 mg Tablet 600 mg PO Q6H Qty: 30 0RF WesTab Plus 27 mg iron- 1 mg tablet 1 tab PO DAILY Primary Care Provider: Care Physician,No Primary Referrals: Marybeth Srinivasan MD [Med Staff - Active Staff] - As Needed Care Physician,No Primary [Primary Care Provider] - Activity Restrictions/Additional Instructions: Please follow-up with your [employer] [facility] as scheduled. If you soak through more than a pad an hour please call your [employer] [facility] for further recommendations. At this time your hemoglobin is improving and you can continue to follow-up outpatient. Print Language: [place] Island[place] Disposition Disposition: Home, Self Care
[2024-03-30 18:40] LABS: Absolute Lymphocyte Count 1.62 X10^3/uL (0.83-4.51); Absolute Neutrophil Count 5.7 X10^3/uL (2.0-7.7); Basophil# 0.07 X10^3/uL; Basophil% 0.8 % (0-1); Eosinophil# 0.38 X10^3/uL; Eosinophils% 4.6 % (0-5); Hematocrit 33.5 % (37-47); Hemoglobin 11.3 g/dL (12.0-15.0); Lymphocyte # 1.62 X10^3/ul (0.83-4.51); Lymphocyte % 19.6 % (19-41); Mean Corp Hgb Conc 33.7 g/dL (32-36); Mean Corpuscular Volume 88.9 fL (81-99); Mean Platelet Vol. 9.4 fl (6.2-12.0); Monocyte# 0.41 X10^3/uL; NRBC Flagged by Analyzer 0 % (0-5); Neutrophil # 5.73 X10^3/uL (2.7-7.7); Neutrophil % 69.5 % (47-70); Platelet Count 401 K/mm3 (150-450); RBC Distribution Width CV 12.8 % (11.6-14.6); RBC Distribution Width SD 41.4 fl (35.1-43.9); Red Blood Count 3.77 M/mm3 (4.2-5.4); White Blood Count 8.3 K/mm3 (4.4-11.0)
[2024-03-30 18:44] LABS: International Normalized Ratio 1.1; Prothrombin Time (Protime)PT. 14.1 SECONDS (11.7-14.9)
[2024-03-30 18:45] LABS: Partial Thromboplast Time 37.1 Seconds (24.1-36.2)
[2024-03-30 18:53] LABS: Anion Gap 7 (5-15); BUN 10 mg/dL (7-18); BUN/Creat Ratio 18.1 RATIO (10-20); Calcium,Total 9.1 mg/dL (8.5-10.1); Chloride 112 mmol/L (98-107); Creatinine, Serum 0.55 mg/dL (0.55-1.02); EST Glomerular Filtration Rate 147 mL/min (>60); Est Glom Filt Rate - Afr Amer 178 mL/min (>60); Estimated Creatinine Clearance 133.84 ml/min; Glucose 105 mg/dL (74-106); Potassium 3.5 mmol/L (3.5-5.1); Sodium Level 143 mmol/L (136-145)
[2024-03-30 19:19] VITALS: BP 122/89; PULSE 59; RESP 16; O2SAT 98
--- NOTE | 2024-03-30 19:44 | ED.RN ---
THIN, GREENISH-BROWN DISCHARGE ON SPECULUM DURING PELVIC EXAM. PERFORMED BY Malu WOLFE
[2024-03-30 21:00] VITALS: BP 115/82; PULSE 59; RESP 16; O2SAT 99
[2024-03-30 21:30] VITALS: BP 115/82; PULSE 59; RESP 16; TEMP 37.2; O2SAT 99
== END 2024-03-30 21:41 | disposition home or self-care (01) ==
PROVIDERS: Emergency Provider Emergency Medicine; Visit Provider Emergency Medicine
DX: O72.2 Delayed and secondary postpartum hemorrhage (principal); Z3A.00 Weeks of gestation of pregnancy not specified; Z87.891 Personal history of nicotine dependence
CPT/HCPCS: 80048; 85025; 85610; 85730; 99283; A4216